=== PATIENT | male | born 1980 | race Caucasian/White ===

== ENCOUNTER 2020-05-29 08:45 | Outpatient (REF) | payer OTHER, SELFPAY ==
--- NOTE | 2020-05-29 09:17 | XR_ITS ---
EXAMINATION: XR CHEST CLINICAL INFORMATION: Cough COMPARISON: None TECHNIQUE: 2 views of the chest were obtained. FINDINGS: No significant abnormality is noted involving the heart, lungs, mediastinum, bony thorax or soft tissues. XR/XR chest 2V IMPRESSION: No acute disease
[2020-05-29 09:38] LABS: MANUAL DIFF FLAG NO
[2020-05-29 09:42] LABS: Basophils Absolute Auto 0.1 X10*3/uL (0.0-0.2); Basophils Percent Auto 0.6 % (0-2); Eosinophils Absolute Auto 0.8 X10*3/uL (0.0-0.4); Eosinophils Percent Auto 7.2 % (0-4); Hematocrit 44.3 % (42-52); Hemoglobin 14.6 g/dl (14.0-18.0); Imm Gran Abs Auto 0.03 X10*3/uL (0.00-0.03); Imm Gran Pct Auto 0.3 % (0.0-0.4); Lymphocytes Absolute Auto 3.1 X10*3/uL (1.2-4.9); Mean Corpuscular Hemoglobin 28.4 pg (27.0-33.0); Mean Corpuscular Volume 86.2 fL (80-98); Mean Platelet Volume 10.3 fL (9.4-12.4); Monocytes Absolute Auto 0.9 X10*3/uL (0.1-1.2); Neutrophils Absolute Auto 5.5 X10*3/uL (2.0-8.3); Neutrophils Percent Auto 52.9 % (45-73); Platelet Count 283 X10*3/uL (160-400); Red Blood Count 5.14 X10*6/uL (4.60-5.80); Red Cell Distribution Width 14.1 % (11.0-16.0); White Blood Count 10.4 X10*3/uL (4.8-10.8)
[2020-05-29 10:09] LABS: Glucose Urine UA NEG (NEG); Leukocyte Esterase Urine NEG (NEG); Nitrite Urine NEG (NEG); Specific Gravity - Urine 1.025 (1.005-1.025); Urine Blood NEG (NEG); Urine Ketones NEG (NEG); Urine Protein NEG (NEG-TRACE)
[2020-05-29 10:13] LABS: Appearance Urine CLEAR; Color Urine YELLOW
[2020-05-29 10:20] LABS: Alanine Aminotransferase 52 U/L (0-40); Albumin Level 4.6 g/dL (3.5-5.0); Alkaline Phosphatase 45 U/L (39-117); Anion Gap 11 (12-20); Aspartate Amino Transferase 24 U/L (5-37); Bilirubin Total 0.6 mg/dL (0.0-1.0); Blood Urea Nitrogen 15 mg/dL (9-16); Calcium 9.5 mg/dL (8.4-10.2); Carbon Dioxide 28 mmol/L (22-29); Chloride 102 mmol/L (96-108); Cholesterol 175 mg/dL; Estimated Glomerular Filt Rate > 60; Glucose Fasting 97 mg/dL (60-99); HDL Cholesterol 63 mg/dL; LDL Cholesterol Calculated 93 mg/dl; Potassium 4.6 mmol/l (3.3-5.1); Sodium 136 mmol/L (135-145); Total Protein 7.1 g/dL (6.5-8.0); Triglycerides 99 mg/dL
== END 2020-05-29 08:46 | disposition home or self-care (01) ==
LOC: HO.LAB 08:45
PROVIDERS: PCP Internal Medicine; Visit Provider Internal Medicine
DX: R05 Cough (principal); Z00.00 Encounter for general adult medical examination without abnormal findings
CPT/HCPCS: 36415; 71046; 80053; 80061; 81003; 85025

== ENCOUNTER 2022-03-11 18:40 | Outpatient (REF) | payer SELFPAY ==
--- NOTE | ~2022-03-11 | MR_ITS ---
EXAMINATION: MR BRAIN WITHOUT AND WITH CONTRAST CLINICAL INFORMATION: Cluster headaches. COMPARISON: CT scan of the head 10/13/2013. TECHNIQUE: Multiplanar MR imaging of the brain was performed without and with contrast. A total of 8 mL Gadavist was utilized for this examination. FINDINGS: Postcontrast images reveal no abnormal intracranial mass or enhancement. There is no intracranial mass effect or midline shift. Lateral and third ventricles are normal. No hydrocephalus. Midline structures including the cervicomedullary junction are normal. No acute bone marrow signal changes. There is no acute territorial infarct. No pathological magnetic susceptibility artifact. Intracranial vascular flow voids are grossly maintained. There is no mastoid or middle ear effusion. [id number] paranasal sinus thickening within ethmoid air cells and the alveolar recesses of the maxillary sinuses. Globes and orbits are symmetric. MR/MR head/brain wo/w con IMPRESSION: Unremarkable brain MRI. No abnormal intracranial mass or enhancement. No evidence of acute territorial infarct or hemorrhage.
== END 2022-03-11 18:41 | disposition home or self-care (01) ==
LOC: HO.MRI 18:40
PROVIDERS: Visit Provider Psychiatry & Neurology Neurology
DX: G44.009 Cluster headache syndrome, unspecified, not intractable (principal)
CPT/HCPCS: 70553; A9585

== ENCOUNTER 2022-06-09 13:41 | Emergency (ER) | payer OTHER, SELFPAY ==
--- NOTE | ~2022-06-09 | CT_ITS ---
EXAMINATION: CT ABDOMEN AND PELVIS WITHOUT CONTRAST CLINICAL INFORMATION: Nausea and vomiting with left upper and lower quadrant abdominal pain COMPARISON: CT abdomen pelvis 02/09/2017 TECHNIQUE: Multidetector volumetric imaging was performed from the superior aspect of the liver through the pubic symphysis. Sagittal and coronal reformatted images were obtained on the technologist's workstation. This CT examination was performed using dose optimization techniques as appropriate, variously including the following: *Automated exposure control *Adjustment of mA and/or kV according to patient size (this includes techniques or standardized protocols for targeted exams where dose is matched to indication/reason for exam; i.e. extremities or head) *Use of iterative reconstruction technique DLP: 486 mGy-cm FINDINGS: LUNG BASES: Tiny fat-containing right-sided Bochdalek hernia. Visualized lung bases are clear. LIVER, GALLBLADDER, AND BILIARY TREE: The liver is normal in size, shape, and attenuation. No focal hepatic lesion or biliary ductal dilatation is present. The gallbladder is unremarkable with no evidence of radiopaque gallstones, gallbladder wall thickening, or obvious pericholecystic inflammatory changes. PANCREAS: Unremarkable. SPLEEN: Unremarkable. ADRENAL GLANDS: Unremarkable. KIDNEYS AND URETERS: Small sub-3 mm vascular calcification versus nonobstructing stone in the left upper pole, unchanged, favor the former. No definite radiodense urinary tract calculi. No hydronephrosis. No appreciable renal lesion. No perinephric stranding or collection. BLADDER: Unremarkable. GASTROINTESTINAL TRACT: Redemonstrated submucosal fat deposition involving the majority of the colon as well as the terminal ileum, which may represent normal variant or sequela of chronic inflammation. No appreciable bowel wall thickening. No pericolonic inflammatory change. No dilated bowel loops. Appendix is not visualized. No inflammatory change at the cecal base. No free air or ascites. ABDOMINAL WALL: Small fat-containing umbilical hernia. Possible tiny fat-containing bilateral inguinal hernias. LYMPH NODES: No lymphadenopathy. VASCULAR: Normal caliber abdominal aorta. Scant vascular calcification. PELVIC VISCERA: Unremarkable. OSSEOUS STRUCTURES: No acute fracture or suspicious osseous lesion. Mild multilevel degenerative disc disease in the lower thoracic and upper lumbar spine. CT/CT abdomen pelvis wo IV con IMPRESSION: 1. No acute intra-abdominal process identified to explain the patient's pain. 2. Redemonstrated submucosal fat deposition involving the majority of the colon as well as the terminal ileum, which may represent a normal variant or sequela of chronic inflammation. No acute pericolonic inflammatory change or definite mural thickening.
[2022-06-09 13:47] VITALS: BP 159/90; PULSE 87; RESP 18; TEMP 36.4; O2SAT 99; BMI 24.4
--- NOTE | 2022-06-09 13:48 | ED_ITS ---
HPI - Abdominal Pain General Chief Complaint: Nausea/Vomiting/Diarrhea <PIYUSH Hall - Last Filed: 06/09/22 16:05> Stated Complaint: vomiting abd pain <PIYUSH Hall - Last Filed: 06/09/22 16:05> Time Seen by Provider: 06/09/22 21:06 <PIYUSH Hall - Last Filed: 06/09/22 16:05> Source: patient and family ( [place]) <Cesar Holt MD - Last Filed: 06/10/22 00:13> Mode of arrival: ambulatory <Cesar Holt MD - Last Filed: 06/10/22 00:13> Limitations: no limitations <Cesar Holt MD - Last Filed: 06/10/22 00:13> History of Present Illness HPI narrative: 41-year-old male who presents emergency department for evaluation of nausea, vomiting, diarrhea and abdominal pain. Patient states the symptoms began Wednesday (3 days prior to evaluation) at around 13:00. He states that he developed left lower quadrant abdominal pain. He describes the pain is a sharp, knife-like pain which is been constant and is greater than 10/10 at its worst. Patient states that he had multiple episodes of vomiting and 3-4 episodes of diarrhea per day. He states that the diarrhea resolved today but he continues to have nausea and vomiting and abdominal pain. The patient denies any blood in his diarrhea or emesis. He states that he has not traveled anywhere. He has not been on antibiotics recently. He denied fever, chills, rhinorrhea, sore throat or cough. He states he does have chest pain when he vomits. He states that he is feeling weak, lightheaded and dizzy and he passed out 2 times [facility] He is complaining of myalgias and arthralgias. Patient states that he drinks alcohol once a week. He states that when he drinks he drinks 6-12 Ho Lite beers. He uses gummies daily. States that he did have a history of cyclic vomiting syndrome but his symptoms were different than today's presentation. <Cesar Holt MD - Last Filed: 06/10/22 00:13> MD elicited complaint: abdominal pain <Cesar Holt MD - Last Filed: 06/10/22 00:13> Pertinent past history: other (Cyclic vomiting syndrome) <Cesar Holt MD - Last Filed: 06/10/22 00:13> Onset (ago): day(s) (3) <Cesar Holt MD - Last Filed: 06/10/22 00:13> Pain Consistency: constant <Cesar Holt MD - Last Filed: 06/10/22 00:13> Location: LLQ <Cesar Holt MD - Last Filed: 06/10/22 00:13> Severity: severe <Cesar Holt MD - Last Filed: 06/10/22 00:13> Quality: stabbing (Knife-like) <Cesar Holt MD - Last Filed: 06/10/22 00:13> Radiation: none <Cesar Holt MD - Last Filed: 06/10/22 00:13> Migration to: no migration <Cesar Holt MD - Last Filed: 06/10/22 00:13> Exacerbating factors: eating, vomiting and movement <Cesar Holt MD - Last Filed: 00:13> Relieving factors: nothing <Cesar Holt MD - Last Filed: 06/10/22 00:13> Associated symptoms: nausea, vomiting and diarrhea <Cesar Holt MD - Last Filed: 06/10/22 00:13> Related Data Home Medications: Previous Rx's Medication Instructions Recorded metoclopramide HCl 10 mg tablet 10 mg PO Q6H PRN nausea and 06/10/22 (Reglan) vomiting #14 tabs <PIYUSH Hall - Last Filed: 06/09/22 16:05> Allergies/Adverse Reactions: Allergies Allergy/AdvReac Type Severity Reaction Status Date / Time No Known Allergies Allergy Unverified 03/14/20 15:06 <PIYUSH Hall - Last Filed: 06/09/22 16:05> Review of Systems Review of Systems Yes all other systems are reviewed and are negative <MD Hans Schmitt Last Filed: 06/10/22 00:13> [facility] Past Medical History [facility] Narrative: Past medical history: Cluster headaches, cyclic vomiting syndrome. Past surgical history: Appendectomy. Social history: Patient smokes 1/2 pack of cigarettes per day times 28 years. He drinks alcohol once a week any drinks 6- 12 beers. He uses marijuana gummies daily. <Cesar Holt MD - Last Filed: 06/10/22 00:13> Social History Social History: Social History Alcohol intake: current Use of substances other than those prescribed or required for medical reasons: No Substance Use Type: Marijuana Advance Directives: No <PIYUSH Hall - Last Filed: 06/09/22 16:05> Physical Exam ED Vital Signs: Vital Signs - 24 hr 06/09/22 13:47 06/09/22 16:08 06/09/22 22:00 Temperature 97.5 F 98.8 F Pulse Rate 87 82 75 Respiratory Rate 18 18 14 Blood Pressure 159/90 H 165/72 H 177/85 H Pulse Oximetry 99 98 99 Oxygen Delivery Method Room Air Room Air Room Air BMI result Body Mass Index 24.4 <PIYUSH Hall - Last Filed: 06/09/22 16:05> Vital Signs - 24 hr 06/09/22 13:47 06/09/22 16:08 06/09/22 22:00 Temperature 97.5 F 98.8 F Pulse Rate 87 82 75 Respiratory Rate 18 18 14 Blood Pressure 159/90 H 165/72 H 177/85 H Pulse Oximetry 99 98 99 Oxygen Delivery Method Room Air Room Air Room Air BMI result Body Mass Index 24.4 <Cesar Holt MD - Last Filed: 06/10/22 00:13> Const General: cooperative and no acute distress <Cesar Holt MD - Last Filed: 06/10/22 00:13> Orientation/consciousness: oriented to person and oriented to place <Cesar Holt MD - Last Filed: 06/10/22 00:13> Limitations: no limitations <Cesar Holt MD - Last Filed: 06/10/22 00:13> HENMT Head: Yes normal to inspection, Yes normocephalic and Yes atraumatic <Cesar Holt MD - Last Filed: 06/10/22 00:13> Ears: external ears normal <Cesar Holt MD - Last Filed: 06/10/22 00:13> General nose exam: Normal external nose present <MD Hans Schmitt Last Filed: 06/10/22 00:13> Face and sinus: Yes normal facial exam <Cesar Holt MD - Last Filed: 06/10/22 00:13> Mouth: Normal oral and palatal mucosa present <Cesar Holt MD - Last Filed: 06/10/22 00:13> Throat: Yes posterior oropharynx normal <Cesar Holt MD - Last Filed: 06/10/22 00:13> Eyes General: appearance normal, both eyes and all related structures <Cesar Holt MD - Last Filed: 06/10/22 00:13> Pupils: Equal, round and reactive pupils present <MD Hans Schmitt Last Filed: 06/10/22 00:13> Neck Neck: Yes normal visual inspection, Yes no lymphadenopathy, Yes trachea midline and Yes supple <Cesar Holt MD - Last Filed: 06/10/22 00:13> Chest Chest palpation & inspection: normal inspection of the chest and normal palpation of entire chest wall <Cesar Holt MD - Last Filed: 06/10/22 00:13> Resp Effort & Inspection: normal respiratory effort and able to speak in complete sentences <Cesar Holt MD - Last Filed: 06/10/22 00:13> Auscultation: clear to auscultation bilaterally <MD Hans Schmitt Last Filed: 06/10/22 00:13> Cardio Rate: regular rate <Cesar Holt MD - Last Filed: 06/10/22 00:13> Rhythm: regular rhythm <MD Hans Schmitt Last Filed: 06/10/22 00:13> Heart sounds: S1 normal heart sound present, S2 normal heart sound present and no murmurs <MD Hans Schmitt Last Filed: 06/10/22 00:13> GI Inspection: Yes normal to inspection <Cesar Holt MD - Last Filed: 06/10/22 00:13> Palpation (GI): Soft to palpation, Tenderness to palpation present (GI) in the LLQ (Moderate) and in the LUQ (Mild) and no guarding <Cesar Holt MD - Last Filed: 06/10/22 00:13> Auscultation: normal bowel sounds <Cesar Holt MD - Last Filed: 06/10/22 00:13> General: Yes no CVA tenderness <Cesar Holt MD - Last Filed: 06/10/22 00:13> Back/Spine/Pelvis Back: no CVA tenderness <Cesar Holt MD - Last Filed: 06/10/22 00:13> Skin General skin exam: no rashes or lesions noted <Cesar Holt MD - Last Filed: 06/10/22 00:13> Neuro General: oriented to person and oriented to place <Cesar Holt MD - Last Filed: 06/10/22 00:13> Cranial nerves: Yes CN's II-XII intact bilaterally and Yes Equal, round and reactive pupils present <Cesar Holt MD - Last Filed: 06/10/22 00:13> Cognition (Neuro): normal cognition <Cesar Holt MD - Last Filed: 06/10/22 00:13> Motor exam (neuro): 5/5 motor strength present throughout <Cesar Holt MD - Last Filed: 06/10/22 00:13> Extrem General: Yes normal to inspection <Cesar Holt MD - Last Filed: 06/10/22 00:13> Psych Appearance: grossly normal <Cesar Holt MD - Last Filed: 06/10/22 00:13> Speech and movement: Normal speech and movement present <Cesar Holt MD - Last Filed: 06/10/22 00:13> Affect: normal affect <Cesar Holt MD - Last Filed: 06/10/22 00:13> Attitude: cooperative <Cesar Holt MD - Last Filed: 06/10/22 00:13> Thought process: Normal thought process present <Cesar Holt MD - Last Filed: 06/10/22 00:13> Thought content: Normal thought content present <Cesar Holt MD - Last Filed: 06/10/22 00:13> Course Course Course Narrative: 13:50pm - 41yoM c PMHx of cluster headaches, cyclical vomiting c PSHx of appendicitis who is presenting to the ED c c/o of N/V/D c abd pain LLQ. No fevers, black of bloody emesis or stools. Denies recently travel or sick contacts. Last Alcohol intake wednesday drank 12 beers. Plan: Labs, SARS/RSV/COVID swab, UA, CT scan of abd/pelvis. Provide 4mg of PO Zofran. Vitals are stable. Patient will be sent back to the waiting room for further evaluation treatment to the main ER. <PIYUSH Hall - Last Filed: 06/09/22 16:05> 13:50pm - 41yoM c PMHx of cluster headaches, cyclical vomiting c PSHx of appendicitis who is presenting to the ED c c/o of N/V/D c abd pain LLQ. No fevers, black of bloody emesis or stools. Denies recently travel or sick contacts. Last Alcohol intake wednesday drank 12 beers. Plan: Labs, SARS/RSV/COVID swab, UA, CT scan of abd/pelvis. Provide 4mg of PO Zofran. Vitals are stable. Patient will be sent back to the waiting room for further evaluation treatment to the main ER. 2127: RME reviewed. 41-year-old male who presents emergency department for evaluation of 3 days of nausea, vomiting, diarrhea and abdominal pain. Patient had 2 syncopal episodes in the emergency department a trip is this to not eating and drinking for several days. Vital signs reveal that he was hypertensive with a blood pressure of 159/90 otherwise unremarkable. Exam did reveal left upper and left lower quadrant tenderness. Patient received Zofran ODT at triage with no relief his nausea or vomiting. Laboratory evaluation: WBC elevated 13,500 glucose elevated 133. LFTs and lipase were normal. COVID-19, RSV and influenza were negative. Radiology evaluation: CT scan of the abdomen pelvis without IV contrast radiology reading below: IMPRESSION: 1. No acute intra-abdominal process identified to explain the patient's pain. 2. Redemonstrated submucosal fat deposition involving the majority of the colon as well as the terminal ileum, which may represent a normal variant or sequela of chronic inflammation. No acute pericolonic inflammatory change or definite mural thickening. Dictated By:Gavin KelloggSigned By:<Electronically signed by Gavin Kellogg in [place]>06/09/22 1705 Given this relatively negative workup, I suspect the patient has an acute viral syndrome and I did discuss this with him. Patient was ordered to get 2 L of lactated Ringer's IV, Toradol 30 mg IV, morphine 4 mg IV and healing 10 mg IV. 0008: Patient is feeling significantly better. The patient will be discharged home with prescription for Reglan. <Cesar Holt MD - Last Filed: 06/10/22 00:13> Medical Decision Making Lab Data Result Diagrams: : 06/09/22 14:06 06/09/22 14:06 <PIYUSH Hall - Last Filed: 06/09/22 16:05> Labs: Lab Results 06/09/22 06/09/22 06/09/22 Range/Units 14:06 14:06 14:06 WBC 13.5 H (4.8-10.8) X10*3/uL RBC 5.07 (4.60-5.80) X10*6/uL Hgb 14.6 (14.0-18.0) g/dl Hct 43.6 (42.0-52.0) % MCV 86.0 (80.0-98.0) fL MCH 28.8 (27.0-33.0) pg MCHC 33.5 (31.0-36.0) g/dl RDW 13.5 (11.0-16.0) % Plt Count 315 (160-400) X10*3/uL MPV 10.3 (9.4-12.4) fL Immature Gran % (Auto) 0.5 H (0.0-0.4) % Neut % (Auto) 75.9 H (45-73) % Lymph % (Auto) 16.1 L (20-40) % [place] % (Auto) 6.3 (2-11) % Eos % (Auto) 1.0 (0-4) % Baso % (Auto) 0.2 (0-2) % Lymph # (Auto) 2.2 (1.2-4.9) X10*3/uL [place] # (Auto) 0.9 (0.1-1.2) X10*3/uL Eos # (Auto) 0.1 (0.0-0.4) X10*3/uL Baso # (Auto) 0.0 (0.0-0.2) X10*3/uL Abs Immat Gran (auto) 0.07 H (0.00-0.03) X10*3/uL Absolute Neuts (auto) 10.3 H (2.0-8.3) x10*3/uL Absolute Nucleated RBC 0.000 (0.0-0.012) X10*3/uL Nucleated RBC % (auto) 0.0 (0.0-0.2) /100WBC PT 11.1 (10.0-13.1) SEC INR 1.0 (0.9-1.1) Sodium 138 (135-145) mmol/L Potassium 3.9 (3.3-5.1) mmol/L Chloride 105 (96-108) mmol/L Carbon Dioxide 24 (22-29) mmol/L Anion Gap 13 (12-20) BUN 10 (9-16) mg/dL Creatinine 0.76 (0.5-1.4) mg/dL Estim Creat Clear Calc 141.8 Estimated GFR > 60 Random Glucose 133 H (60-115) mg/dL Calcium 9.9 (8.4-10.2) mg/dL Magnesium 1.8 (1.6-2.6) mg/dL Total Bilirubin 0.6 (0.0-1.0) mg/dL AST 19 (5-37) U/L ALT 41 H (0-40) U/L Alkaline Phosphatase 53 (39-117) U/L Lactate Dehydrogenase 151 (118-273) U/L Total Protein 7.2 (6.5-8.0) g/dL Albumin 4.9 (3.5-5.0) g/dL Lipase 18 (8-78) U/L Urine Color Urine Appearance Urine pH (5.0-9.0) Ur Specific Harrod (1.005-1.025) Urine Protein (Neg-Trace) mg/dL Urine Glucose (UA) (Negative) mg/dL Urine Ketones (Negative) mg/dL Urine Blood (Negative) Urine Nitrite (Negative) Ur Leukocyte Esterase (Negative) Ethyl Alcohol < 10 mg/dL Influenza Type A (PCR) (Negative) Influenza Type B (PCR) (Negative) RSV RNA Qual (PCR) (Negative) SARS-CoV-2 RNA (RT-PCR) (Negative) 06/09/22 06/09/22 Range/Units 14:06 23:52 WBC (4.8-10.8) X10*3/uL RBC (4.60-5.80) X10*6/uL Hgb (14.0-18.0) g/dl Hct (42.0-52.0) % MCV (80.0-98.0) fL MCH (27.0-33.0) pg MCHC (31.0-36.0) g/dl RDW (11.0-16.0) % Plt Count (160-400) X10*3/uL MPV (9.4-12.4) fL Immature Gran % (Auto) (0.0-0.4) % Neut % (Auto) (45-73) % Lymph % (Auto) (20-40) % [place] % (Auto) (2-11) % Eos % (Auto) (0-4) % Baso % (Auto) (0-2) % Lymph # (Auto) (1.2-4.9) X10*3/uL [place] # (Auto) (0.1-1.2) X10*3/uL Eos # (Auto) (0.0-0.4) X10*3/uL Baso # (Auto) (0.0-0.2) X10*3/uL Abs Immat Gran (auto) (0.00-0.03) X10*3/uL Absolute Neuts (auto) (2.0-8.3) x10*3/uL Absolute Nucleated RBC (0.0-0.012) X10*3/uL Nucleated RBC % (auto) (0.0-0.2) /100WBC PT (10.0-13.1) SEC INR (0.9-1.1) Sodium (135-145) mmol/L Potassium (3.3-5.1) mmol/L Chloride (96-108) mmol/L Carbon Dioxide (22-29) mmol/L Anion Gap (12-20) BUN (9-16) mg/dL Creatinine (0.5-1.4) mg/dL Estim Creat Clear Calc Estimated GFR Random Glucose (60-115) mg/dL Calcium (8.4-10.2) mg/dL Magnesium (1.6-2.6) mg/dL Total Bilirubin (0.0-1.0) mg/dL AST (5-37) U/L ALT (0-40) U/L Alkaline Phosphatase (39-117) U/L Lactate Dehydrogenase (118-273) U/L Total Protein (6.5-8.0) g/dL Albumin (3.5-5.0) g/dL Lipase (8-78) U/L Urine Color Dark Yellow Urine Appearance Clear Urine pH 6.5 (5.0-9.0) Ur Specific [place] 1.020 (1.005-1.025) Urine Protein Trace (Neg-Trace) mg/dL Urine Glucose (UA) Negative (Negative) mg/dL Urine Ketones 40 (Negative) mg/dL Urine Blood Negative (Negative) Urine Nitrite Negative (Negative) Ur Leukocyte Esterase Negative (Negative) Ethyl Alcohol mg/dL Influenza Type A (PCR) NEGATIVE (Negative) Influenza Type B (PCR) NEGATIVE (Negative) RSV RNA Qual (PCR) NEGATIVE (Negative) SARS-CoV-2 RNA (RT-PCR) NEGATIVE (Negative) <PIYUSH Hlal - Last Filed: 06/09/22 16:05> Lab Results 06/09/22 06/09/22 06/09/22 Range/Units 14:06 14:06 14:06 WBC 13.5 H (4.8-10.8) X10*3/uL RBC 5.07 (4.60-5.80) X10*6/uL Hgb 14.6 (14.0-18.0) g/dl Hct 43.6 (42.0-52.0) % MCV 86.0 (80.0-98.0) fL MCH 28.8 (27.0-33.0) pg MCHC 33.5 (31.0-36.0) g/dl RDW 13.5 (11.0-16.0) % Plt Count 315 (160-400) X10*3/uL MPV 10.3 (9.4-12.4) fL Immature Gran % (Auto) 0.5 H (0.0-0.4) % Neut % (Auto) 75.9 H (45-73) % Lymph % (Auto) 16.1 L (20-40) % [place] % (Auto) 6.3 (2-11) % Eos % (Auto) 1.0 (0-4) % Baso % (Auto) 0.2 (0-2) % Lymph # (Auto) 2.2 (1.2-4.9) X10*3/uL [place] # (Auto) 0.9 (0.1-1.2) X10*3/uL Eos # (Auto) 0.1 (0.0-0.4) X10*3/uL Baso # (Auto) 0.0 (0.0-0.2) X10*3/uL Abs Immat Gran (auto) 0.07 H (0.00-0.03) X10*3/uL Absolute Neuts (auto) 10.3 H (2.0-8.3) x10*3/uL Absolute Nucleated RBC 0.000 (0.0-0.012) X10*3/uL Nucleated RBC % (auto) 0.0 (0.0-0.2) /100WBC PT 11.1 (10.0-13.1) SEC INR 1.0 (0.9-1.1) Sodium 138 (135-145) mmol/L Potassium 3.9 (3.3-5.1) mmol/L Chloride 105 (96-108) mmol/L Carbon Dioxide 24 (22-29) mmol/L Anion Gap 13 (12-20) BUN 10 (9-16) mg/dL Creatinine 0.76 (0.5-1.4) mg/dL Estim Creat Clear Calc 141.8 Estimated GFR > 60 Random Glucose 133 H (60-115) mg/dL Calcium 9.9 (8.4-10.2) mg/dL Magnesium 1.8 (1.6-2.6) mg/dL Total Bilirubin 0.6 (0.0-1.0) mg/dL AST 19 (5-37) U/L ALT 41 H (0-40) U/L Alkaline Phosphatase 53 (39-117) U/L Lactate Dehydrogenase 151 (118-273) U/L Total Protein 7.2 (6.5-8.0) g/dL Albumin 4.9 (3.5-5.0) g/dL Lipase 18 (8-78) U/L Urine Color Urine Appearance Urine pH (5.0-9.0) Ur Specific [place] (1.005-1.025) Urine Protein (Neg-Trace) mg/dL Urine Glucose (UA) (Negative) mg/dL Urine Ketones (Negative) mg/dL Urine Blood (Negative) Urine Nitrite (Negative) Ur Leukocyte Esterase (Negative) Ethyl Alcohol < 10 mg/dL Influenza Type A (PCR) (Negative) Influenza Type B (PCR) (Negative) RSV RNA Qual (PCR) (Negative) SARS-CoV-2 RNA (RT-PCR) (Negative) 06/09/22 06/09/22 Range/Units 14:06 23:52 WBC (4.8-10.8) X10*3/uL RBC (4.60-5.80) X10*6/uL Hgb (14.0-18.0) g/dl Hct (42.0-52.0) % MCV (80.0-98.0) fL MCH (27.0-33.0) pg MCHC (31.0-36.0) g/dl RDW (11.0-16.0) % Plt Count (160-400) X10*3/uL MPV (9.4-12.4) fL Immature Gran % (Auto) (0.0-0.4) % Neut % (Auto) (45-73) % Lymph % (Auto) (20-40) % [place] % (Auto) (2-11) % Eos % (Auto) (0-4) % Baso % (Auto) (0-2) % Lymph # (Auto) (1.2-4.9) X10*3/uL [place] # (Auto) (0.1-1.2) X10*3/uL Eos # (Auto) (0.0-0.4) X10*3/uL Baso # (Auto) (0.0-0.2) X10*3/uL Abs Immat Gran (auto) (0.00-0.03) X10*3/uL Absolute Neuts (auto) (2.0-8.3) x10*3/uL Absolute Nucleated RBC (0.0-0.012) X10*3/uL Nucleated RBC % (auto) (0.0-0.2) /100WBC PT (10.0-13.1) SEC INR (0.9-1.1) Sodium (135-145) mmol/L Potassium (3.3-5.1) mmol/L Chloride (96-108) mmol/L Carbon Dioxide (22-29) mmol/L Anion Gap (12-20) BUN (9-16) mg/dL Creatinine (0.5-1.4) mg/dL Estim Creat Clear Calc Estimated GFR Random Glucose (60-115) mg/dL Calcium (8.4-10.2) mg/dL Magnesium (1.6-2.6) mg/dL Total Bilirubin (0.0-1.0) mg/dL AST (5-37) U/L ALT (0-40) U/L Alkaline Phosphatase (39-117) U/L Lactate Dehydrogenase (118-273) U/L Total Protein (6.5-8.0) g/dL Albumin (3.5-5.0) g/dL Lipase (8-78) U/L Urine Color Dark Yellow Urine Appearance Clear Urine pH 6.5 (5.0-9.0) Ur Specific [place] 1.020 (1.005-1.025) Urine Protein Trace (Neg-Trace) mg/dL Urine Glucose (UA) Negative (Negative) mg/dL Urine Ketones 40 (Negative) mg/dL Urine Blood Negative (Negative) Urine Nitrite Negative (Negative) Ur Leukocyte Esterase Negative (Negative) Ethyl Alcohol mg/dL Influenza Type A (PCR) NEGATIVE (Negative) Influenza Type B (PCR) NEGATIVE (Negative) RSV RNA Qual (PCR) NEGATIVE (Negative) SARS-CoV-2 RNA (RT-PCR) NEGATIVE (Negative) <Cesar Holt MD - Last Filed: 06/10/22 00:13> Medications Administered Discontinued Medications Generic Name Dose Route Start Last Admin Trade Name Freq PRN Reason Stop Dose Admin Lactated Ringer's 1,000 mls @ 999 mls/hr 06/09/22 21:30 06/09/22 21:50 Lr IV 06/09/22 22:30 999 mls/hr .Q1H1M ENRIQUE Administration Lactated Ringer's 1,000 mls @ 999 mls/hr 06/09/22 21:30 06/09/22 21:50 Lr IV 06/09/22 22:30 999 mls/hr .Q1H1M ENRIQUE Administration Ketorolac Tromethamine 30 mg 06/09/22 21:21 06/09/22 21:49 Ketorolac Tromethamine 15 Mg/Ml Vial IVPUSH 06/09/22 21:22 30 mg ONCE STA Administration Metoclopramide HCl 10 mg 06/09/22 21:21 06/09/22 21:49 Metoclopramide Hcl 10 Mg/2 Ml Vial IVPUSH 06/09/22 21:22 10 mg ONCE STA Administration Morphine Sulfate 4 mg 06/09/22 21:21 06/09/22 21:49 Morphine Sulfate 4 Mg/Ml Cartridge IVPUSH 06/09/22 21:22 4 mg ONCE STA Administration Protocol Ondansetron HCl 4 mg 06/09/22 13:50 06/09/22 13:55 Ondansetron Odt 4 Mg Tab.Rapdis TRANSLINGU 06/09/22 13:51 4 mg ONCE ONE Administration <PIYUSH Hall - Last Filed: 06/09/22 16:05> Medications Administered Discontinued Medications Generic Name Dose Route Start Last Admin Trade Name Juan PRN Reason Stop Dose Admin Lactated Ringer's 1,000 mls @ 999 mls/hr 06/09/22 21:30 06/09/22 21:50 Lr IV 06/09/22 22:30 999 mls/hr .Q1H1M ENRIQUE Administration Lactated Ringer's 1,000 mls @ 999 mls/hr 06/09/22 21:30 06/09/22 21:50 Lr IV 06/09/22 22:30 999 mls/hr .Q1H1M ENRIQUE Administration Ketorolac Tromethamine 30 mg 06/09/22 21:21 06/09/22 21:49 Ketorolac Tromethamine 15 Mg/Ml Vial IVPUSH 06/09/22 21:22 30 mg ONCE STA Administration Metoclopramide HCl 10 mg 06/09/22 21:21 06/09/22 21:49 Metoclopramide Hcl 10 Mg/2 Ml Vial IVPUSH 06/09/22 21:22 10 mg ONCE STA Administration Morphine Sulfate 4 mg 06/09/22 21:21 06/09/22 21:49 Morphine Sulfate 4 Mg/Ml Cartridge IVPUSH 06/09/22 21:22 4 mg ONCE STA Administration Protocol Ondansetron HCl 4 mg 06/09/22 13:50 06/09/22 13:55 Ondansetron Odt 4 Mg Tab.Rapdis TRANSLINGU 06/09/22 13:51 4 mg ONCE ONE Administration <Cesar Holt MD - Last Filed: 06/10/22 00:13> Discharge Plan Discharge Clinical Impression: Viral syndrome, Acute dehydration Diarrhea Qualifiers: Diarrhea type: unspecified type Qualified Code(s): R19.7 - Diarrhea, unspecified Vomiting Qualifiers: Vomiting type: bilious vomiting Nausea presence: with nausea Qualified Code(s): R11.14 - Bilious vomiting <PIYUSH Hall - Last Filed: 06/09/22 16:05> Patient Disposition: Home, Self-Care <PIYUSH Hall - Last Filed: 06/09/22 16:05> Instructions: Viral Syndrome (ED) <PIYUSH Hall - Last Filed: 06/09/22 16:05> Additional Instructions: Take ibuprofen 200 mg pills, 3 pills every 6 hours as needed for pain. Take Tylenol (acetaminophen) 500 mg pills, 2 pills every 4 to 6 hours as needed for pain. Reglan (metoclopramide) in 10 mg, 1 pill Benadryl 25 mg, 2 pills After you take these medications, lie down in a dark quiet room and try to fall asleep. These medications will make you sleepy, do not drive or work after taking these medications. For diarrhea I want you to take Imodium 2 mg pills. Take 2 pills after the 1st loose, diarrheal stool then 1 pill after each loose, diarrheal stool up to 8 pills per day. This usually stops diarrhea within 24 hours. Take ibuprofen 200 mg pills, 3 pills every 6 hours as needed for pain. Take Tylenol (acetaminophen) 500 mg pills, 2 pills every 6 hours as needed for pain. Stay on a bridgett diet for the next 24 hours (bananas, rice, applesauce, tea and toast). Follow-up with your doctor in 2 days. Please return to the emergency department if your symptoms get worse or if you develop any symptoms that are concerning to you. <PIYUSH Hall - Last Filed: 06/09/22 16:05> Prescriptions: New metoclopramide HCl [Reglan] 10 mg tablet 10 mg PO Q6H PRN (Reason: nausea and vomiting) Qty: 14 0RF <PIYUSH Hall - Last Filed: 06/09/22 16:05>
[2022-06-09] MEDS: Ondansetron ODT 4 MG TAB.RAPDIS TRANSLINGU (13:55)
[2022-06-09 14:11] LABS: MANUAL DIFF FLAG NO
[2022-06-09 14:24] LABS: Basophils Percent Auto 0.2 % (0-2); Eosinophils Absolute Auto 0.1 X10*3/uL (0.0-0.4); Hematocrit 43.6 % (42.0-52.0); Hemoglobin 14.6 g/dl (14.0-18.0); Imm Gran Abs Auto 0.07 X10*3/uL (0.00-0.03); Imm Gran Pct Auto 0.5 % (0.0-0.4); Lymphocytes Absolute Auto 2.2 X10*3/uL (1.2-4.9); Lymphocytes Percent Auto 16.1 % (20-40); Mean Corpuscular HGB Conc 33.5 g/dl (31.0-36.0); Mean Corpuscular Hemoglobin 28.8 pg (27.0-33.0); Mean Platelet Volume 10.3 fL (9.4-12.4); Monocytes Absolute Auto 0.9 X10*3/uL (0.1-1.2); Monocytes Percent Auto 6.3 % (2-11); Neutrophils Absolute Auto 10.3 x10*3/uL (2.0-8.3); Neutrophils Percent Auto 75.9 % (45-73); Platelet Count 315 X10*3/uL (160-400); Red Blood Count 5.07 X10*6/uL (4.60-5.80); Red Cell Distribution Width 13.5 % (11.0-16.0); White Blood Count 13.5 X10*3/uL (4.8-10.8)
[2022-06-09 14:33] LABS: Alanine Aminotransferase 41 U/L (0-40); Albumin Level 4.9 g/dL (3.5-5.0); Alkaline Phosphatase 53 U/L (39-117); Anion Gap 13 (12-20); Aspartate Amino Transferase 19 U/L (5-37); Bilirubin Total 0.6 mg/dL (0.0-1.0); Blood Urea Nitrogen 10 mg/dL (9-16); Calcium 9.9 mg/dL (8.4-10.2); Carbon Dioxide 24 mmol/L (22-29); Chloride 105 mmol/L (96-108); Creatinine Clr Calc Pharmacy 141.8; Estimated Glomerular Filt Rate > 60; Ethanol < 10 mg/dL; Glucose Random 133 mg/dL (60-115); Lactate Dehydrogenase 151 U/L (118-273); Lipase 18 U/L (8-78); Magnesium 1.8 mg/dL (1.6-2.6); Potassium 3.9 mmol/L (3.3-5.1); Sodium 138 mmol/L (135-145); Total Protein 7.2 g/dL (6.5-8.0)
[2022-06-09 14:36] LABS: Prothrombin Time 11.1 SEC (10.0-13.1)
[2022-06-09 15:14] LABS: Influenza A PCR NEGATIVE (Negative); Influenza B PCR NEGATIVE (Negative); Resp Syncy Virus RNA Qual PCR NEGATIVE (Negative); SARS COV2 PCR INHOUSE NEGATIVE (Negative)
[2022-06-09 16:08] VITALS: BP 165/72; PULSE 82; RESP 18; O2SAT 98
[2022-06-09] MEDS: Ketorolac Tromethamine 15 MG/ML VIAL 30 MG IVPUSH (21:49)
[2022-06-09] MEDS: Morphine Sulfate 4 MG/ML CARTRIDGE IVPUSH (21:49)
[2022-06-09] MEDS: Metoclopramide HCl 10 MG/2 ML VIAL IVPUSH (21:49)
[2022-06-09] MEDS: Lactated Ringers 1,000 ML 999 ML IV ×2 (21:50)
[2022-06-09 22:00] VITALS: BP 177/85; PULSE 75; RESP 14; TEMP 37.1; O2SAT 99
[2022-06-09 23:58] LABS: Appearance Urine Clear; Color Urine Dark Yellow; Glucose Urine UA Negative (Negative); Leukocyte Esterase Urine Negative (Negative); Nitrite Urine Negative (Negative); PH 6.5 (5.0-9.0); Urine Blood Negative (Negative); Urine Ketones 40 mg/dL (Negative); Urine Protein Trace mg/dL (Neg-Trace)
--- NOTE | 2022-06-10 00:58 | PC.NURSE ---
Discharge instructions reviewed with pt. Pt verbalizes understanding.
== END 2022-06-10 01:08 | disposition home or self-care (01) ==
PROVIDERS: Physician Assistant Medical; Emergency Provider Emergency Medicine Emergency Medical Services; PCP Internal Medicine
DX: R11.14 Bilious vomiting (principal); R11.2 Nausea with vomiting, unspecified; R10.9 Unspecified abdominal pain; E86.0 Dehydration; Z20.822 Contact with and (suspected) exposure to COVID-19; Z79.899 Other long term (current) drug therapy
CPT/HCPCS: 0241U; 74176; 80053; 81003; 82077; 83615; 83690; 83735; 85025; 85610; 96374; 96375; 99284; 99285; J1885; J2270; J2765

== ENCOUNTER 2022-06-10 15:38 | Emergency (ER) | payer OTHER, SELFPAY ==
--- NOTE | 2022-06-10 16:26 | ED.ABDPAIN ---
HPI - Abdominal Pain General Chief Complaint: Nausea/Vomiting/Diarrhea Stated Complaint: Abdominal Pain/ Vomiting was seen yesterday Time Seen by Provider: 06/10/22 20:23 Related Data Previous Rx's Medication Instructions Recorded haloperidol 2 mg tablet 2 mg PO TID #10 tabs 06/10/22 metoclopramide HCl 10 mg tablet 10 mg PO Q6H PRN nausea and 06/10/22 (Reglan) vomiting #14 tabs Allergies Allergy/AdvReac Type Severity Reaction Status Date / Time No Known Allergies Allergy Unverified 03/14/20 15:06 [facility] Social History Social History Alcohol intake: current Substance Use Type: Marijuana Advance Directives: No Advance Directives Information Provided: No Physical Exam ED Vital Signs: BMI result Body Mass Index 24.4 Course Course Course Narrative: This is a rapid medical exam. Deferred additional HPI, ROS and PE to primary provider. 41yo male healthy here with complaints of generalized abdominal pain, vomiting. No diarrhea, urinary symptoms, fevers, chills. Patient seen here yesterday. Diagnosed with viral syndrome. Recommended to return for any worsening symptoms. Patient reports continued pain and vomiting. VSS. Will check labs, UA, covid screen. Medical Decision Making Lab Data Result Diagrams: 06/10/22 17:08 06/10/22 17:08 Labs: Lab Results 06/10/22 06/10/22 06/10/22 Range/Units 17:08 17:08 17:08 WBC 14.8 H (4.8-10.8) X10*3/uL RBC 5.06 (4.60-5.80) X10*6/uL Hgb 14.4 (14.0-18.0) g/dl Hct 42.1 (42.0-52.0) % MCV 83.2 (80.0-98.0) fL MCH 28.5 (27.0-33.0) pg MCHC 34.2 (31.0-36.0) g/dl RDW 13.6 (11.0-16.0) % Plt Count 312 (160-400) X10*3/uL MPV 9.9 (9.4-12.4) fL Immature Gran % (Auto) 0.3 (0.0-0.4) % Neut % (Auto) 72.9 (45-73) % Lymph % (Auto) 16.3 L (20-40) % [place] % (Auto) 10.2 (2-11) % Eos % (Auto) 0.1 (0-4) % Baso % (Auto) 0.2 (0-2) % Lymph # (Auto) 2.4 (1.2-4.9) X10*3/uL [place] # (Auto) 1.5 H (0.1-1.2) X10*3/uL Eos # (Auto) 0.0 (0.0-0.4) X10*3/uL Baso # (Auto) 0.0 (0.0-0.2) X10*3/uL Abs Immat Gran (auto) 0.05 H (0.00-0.03) X10*3/uL Absolute Neuts (auto) 10.8 H (2.0-8.3) x10*3/uL Absolute Nucleated RBC 0.000 (0.0-0.012) X10*3/uL Nucleated RBC % (auto) 0.0 (0.0-0.2) /100WBC Sodium 142 (135-145) mmol/L Potassium 3.8 (3.3-5.1) mmol/L Chloride 104 (96-108) mmol/L Carbon Dioxide 26 (22-29) mmol/L Anion Gap 16 (12-20) BUN 13 (9-16) mg/dL Creatinine 0.76 (0.5-1.4) mg/dL Estim Creat Clear Calc 141.8 Estimated GFR > 60 Random Glucose 122 H (60-115) mg/dL Calcium 9.9 (8.4-10.2) mg/dL Total Bilirubin 0.7 (0.0-1.0) mg/dL Direct Bilirubin 0.2 (0.0-0.5) mg/dL AST 20 (5-37) U/L ALT 37 (0-40) U/L Alkaline Phosphatase 48 (39-117) U/L Total Protein 7.1 (6.5-8.0) g/dL Albumin 4.9 (3.5-5.0) g/dL Urine Color Urine Appearance Urine pH (5.0-9.0) Ur Specific [place] (1.005-1.025) Urine Protein (Neg-Trace) mg/dL Urine Glucose (UA) (Negative) mg/dL Urine Ketones (Negative) mg/dL Urine Blood (Negative) Urine Nitrite (Negative) Ur Leukocyte Esterase (Negative) Urine RBC (0-2) /HPF Urine WBC (0-5) /HPF Ur Squamous Epith Cells (0-2) /HPF Urine Bacteria (None Seen) Hyaline Casts (0-2) /LPF COVID-19 (SOFIE) Negative (Negative) COVID-19 Clin Com See Note 06/10/22 Range/Units 20:25 WBC (4.8-10.8) X10*3/uL RBC (4.60-5.80) X10*6/uL Hgb (14.0-18.0) g/dl Hct (42.0-52.0) % MCV (80.0-98.0) fL MCH (27.0-33.0) pg MCHC (31.0-36.0) g/dl RDW (11.0-16.0) % Plt Count (160-400) X10*3/uL MPV (9.4-12.4) fL Immature Gran % (Auto) (0.0-0.4) % Neut % (Auto) (45-73) % Lymph % (Auto) (20-40) % [place] % (Auto) (2-11) % Eos % (Auto) (0-4) % Baso % (Auto) (0-2) % Lymph # (Auto) (1.2-4.9) X10*3/uL [place] # (Auto) (0.1-1.2) X10*3/uL Eos # (Auto) (0.0-0.4) X10*3/uL Baso # (Auto) (0.0-0.2) X10*3/uL Abs Immat Gran (auto) (0.00-0.03) X10*3/uL Absolute Neuts (auto) (2.0-8.3) x10*3/uL Absolute Nucleated RBC (0.0-0.012) X10*3/uL Nucleated RBC % (auto) (0.0-0.2) /100WBC Sodium (135-145) mmol/L Potassium (3.3-5.1) mmol/L Chloride (96-108) mmol/L Carbon Dioxide (22-29) mmol/L Anion Gap (12-20) BUN (9-16) mg/dL Creatinine (0.5-1.4) mg/dL Estim Creat Clear Calc Estimated GFR Random Glucose (60-115) mg/dL Calcium (8.4-10.2) mg/dL Total Bilirubin (0.0-1.0) mg/dL Direct Bilirubin (0.0-0.5) mg/dL AST (5-37) U/L ALT (0-40) U/L Alkaline Phosphatase (39-117) U/L Total Protein (6.5-8.0) g/dL Albumin (3.5-5.0) g/dL Urine Color Dark Yellow Urine Appearance Turbid Urine pH 6.5 (5.0-9.0) Ur Specific [place] 1.025 (1.005-1.025) Urine Protein 30 (1+) H (Neg-Trace) mg/dL Urine Glucose (UA) Negative (Negative) mg/dL Urine Ketones 15 (Negative) mg/dL Urine Blood Negative (Negative) Urine Nitrite Negative (Negative) Ur Leukocyte Esterase Trace H (Negative) Urine RBC 3-5 H (0-2) /HPF Urine WBC 0-5 (0-5) /HPF Ur Squamous Epith Cells 0-2 (0-2) /HPF Urine Bacteria None Seen (None Seen) Hyaline Casts 0-2 (0-2) /LPF COVID-19 (SOFIE) (Negative) COVID-19 Clin Com Medications Administered Discontinued Medications Generic Name Dose Route Start Last Admin Trade Name Sumanq PRN Reason Stop Dose Admin Haloperidol Lactate 2 mg 06/10/22 20:36 06/10/22 20:53 Haloperidol Lactate 5 Mg/Ml Vial IVPUSH 06/10/22 20:37 2 mg ONCE ONE Administration Sodium Chloride 1,000 mls @ 999 mls/hr 06/10/22 20:45 06/10/22 22:28 Ns IV 06/10/22 21:45 Infused .Q1H1M ENRIQUE Infusion Discharge Plan Discharge Clinical Impression: Gastroenteritis Patient Disposition: Home, Self-Care Instructions: Gastroenteritis (ED) Additional Instructions: Haloperidol is for nausea. It can make you very drowsy. Do not drive while your taking the medicine. Be sure to drink plenty of liquids over the next few days Prescriptions: New haloperidol 2 mg tablet 2 mg PO TID Qty: 10 0RF No Action metoclopramide HCl [Reglan] 10 mg tablet 10 mg PO Q6H PRN (Reason: nausea and vomiting) Qty: 14 0RF Stand Alone Forms: Work/School Release Interventions: ED Discharge Assessment Last Done: 06/10/22 23:31 Discharge Date/Time: 06/10/22 23:32
[2022-06-10 16:27] VITALS: BP 171/87; PULSE 73; RESP 20; TEMP 36.7; O2SAT 97; BMI 24.4
[2022-06-10 17:16] LABS: Basophils Percent Auto 0.2 % (0-2); Eosinophils Percent Auto 0.1 % (0-4); Hematocrit 42.1 % (42.0-52.0); Hemoglobin 14.4 g/dl (14.0-18.0); Imm Gran Abs Auto 0.05 X10*3/uL (0.00-0.03); Imm Gran Pct Auto 0.3 % (0.0-0.4); Lymphocytes Absolute Auto 2.4 X10*3/uL (1.2-4.9); Lymphocytes Percent Auto 16.3 % (20-40); Mean Corpuscular HGB Conc 34.2 g/dl (31.0-36.0); Mean Corpuscular Hemoglobin 28.5 pg (27.0-33.0); Mean Corpuscular Volume 83.2 fL (80.0-98.0); Mean Platelet Volume 9.9 fL (9.4-12.4); Monocytes Absolute Auto 1.5 X10*3/uL (0.1-1.2); Neutrophils Absolute Auto 10.8 x10*3/uL (2.0-8.3); Neutrophils Percent Auto 72.9 % (45-73); Platelet Count 312 X10*3/uL (160-400); Red Blood Count 5.06 X10*6/uL (4.60-5.80); Red Cell Distribution Width 13.6 % (11.0-16.0); SCAN SMEAR FLAG 1; White Blood Count 14.8 X10*3/uL (4.8-10.8)
[2022-06-10 17:41] LABS: COVID-19 Test Negative (Negative); IDNOW Serial# 9DB6401D
[2022-06-10 17:44] LABS: MANUAL DIFF FLAG NO; Monocytes Percent Auto 10.2 % (2-11)
[2022-06-10 17:58] LABS: Alanine Aminotransferase 37 U/L (0-40); Albumin Level 4.9 g/dL (3.5-5.0); Alkaline Phosphatase 48 U/L (39-117); Anion Gap 16 (12-20); Aspartate Amino Transferase 20 U/L (5-37); Bilirubin Direct 0.2 mg/dL (0.0-0.5); Bilirubin Total 0.7 mg/dL (0.0-1.0); Blood Urea Nitrogen 13 mg/dL (9-16); Calcium 9.9 mg/dL (8.4-10.2); Carbon Dioxide 26 mmol/L (22-29); Chloride 104 mmol/L (96-108); Creatinine Clr Calc Pharmacy 141.8; Estimated Glomerular Filt Rate > 60; Glucose Random 122 mg/dL (60-115); Potassium 3.8 mmol/L (3.3-5.1); Sodium 142 mmol/L (135-145); Total Protein 7.1 g/dL (6.5-8.0)
[2022-06-10 20:18] VITALS: BP 167/75; PULSE 73; TEMP 36.7; O2SAT 98
[2022-06-10 20:31] LABS: Appearance Urine Turbid; Color Urine Dark Yellow; Glucose Urine UA Negative (Negative); Leukocyte Esterase Urine Trace (Negative); Nitrite Urine Negative (Negative); PH 6.5 (5.0-9.0); Specific Gravity - Urine 1.025 (1.005-1.025); UMIC TRIGGER UACC YES; Urine Blood Negative (Negative); Urine Ketones 15 mg/dL (Negative); Urine Protein 30 (1+) mg/dL (Neg-Trace)
--- NOTE | 2022-06-10 20:37 | ED_ITS ---
HPI - Nausea/Vomiting/Diarrhea General Chief complaint: Nausea/Vomiting/Diarrhea Stated complaint: Abdominal Pain/ Vomiting was seen yesterday Time Seen by Provider: 06/10/22 20:23 Source: patient, family and old records reviewed Limitations: no limitations History of Present Illness HPI Narrative: Patient presents with 4 days nausea and vomiting. He had 2 days of severe watery diarrhea when symptoms started but over the last 2 days is just had nausea vomiting. No fevers or chills. Some left lower quadrant abdominal pain. He has been unable to keep down p.o. liquids or solids since this started. He was seen here in the emergency department yesterday and workup was reassuring including a CT scan which showed no intra-abdominal pathology. He was treated symptomatically and temporarily felt better. He was sent home with metoclopramide p.o., but took 1 this morning and felt very lightheaded and flushed after taking it. It did not seem to help his nausea and he is not taking it again as he is concerned about side effect. He states he was diagnosed at 1 point was cyclical vomiting but only had 2 separate episodes of vomiting and has not had any GI issues over the past several years. He uses cannabinoid gummies daily without recent change. He has not had any since this illness began. No precipitating factors that he is aware of. Related Data Previous Rx's Medication Instructions Recorded haloperidol 2 mg tablet 2 mg PO TID #10 tabs 06/10/22 metoclopramide HCl 10 mg tablet 10 mg PO Q6H PRN nausea and 06/10/22 (Reglan) vomiting #14 tabs Allergies Allergy/AdvReac Type Severity Reaction Status Date / Time No Known Allergies Allergy Unverified 03/14/20 15:06 Review of Systems Constitutional: Comments: Positive malaise. Denies fevers or chills. ENT: Comments: Dry mouth Cardiovascular: Comments: No chest pain Respiratory: Comments: No cough or dyspnea Gastrointestinal: Comments: Left lower abdominal pain with ongoing vomiting. Integumentary/Breasts: Comments: No rash Neurologic: Comments: No focal weakness Psychiatric: Comments: No recent stressors PMFSH Social History Social History Alcohol intake: current Substance Use Type: Marijuana Advance Directives: No Advance Directives Information Provided: No Physical Exam Vital Signs: Vital Signs: Last Vital Signs Temp 98.0 F 06/10/22 20:18 Pulse 73 06/10/22 20:18 Resp 20 06/10/22 16:27 BP 167/75 H 06/10/22 20:18 Pulse Ox 98 06/10/22 20:18 O2 Del Method 06/10/22 20:18 BMI result Body Mass Index 24.4 Const: Other: Awake and alert. Resp: Other: Clear and equal bilaterally without wheezes rales or rhonchi Cardio: Other: Regular rate and rhythm without murmurs rubs or gallops GI: Other: Soft and nondistended. Normal bowel sounds. Left lower quadrant abdominal tenderness without guarding or rebound. No masses noted. Skin: Other: Warm pink and dry without rash Neuro: Other: Alert and oriented. No focal neuro deficits Course Course Course Narrative: IV fluids IV Haldol Lab work today shows white count of 14.5 which is similar to yesterday's value of 13. No shift to the left. Electrolytes are normal. BUN today is 13 compared yesterday of 10. Creatinine is unchanged at 0.76. Will treat symptomatically and reassess 23:14. Patient is feeling much better after treatment. He has been able to drink liquids without difficulty. He states he feels ready to go home. Will discharge him home with a prescription for how apparent all for nausea Medications Administered Discontinued Medications Generic Name Dose Route Start Last Admin Trade Name Freq PRN Reason Stop Dose Admin Haloperidol Lactate 2 mg 06/10/22 20:36 06/10/22 20:53 Haloperidol Lactate 5 Mg/Ml Vial IVPUSH 06/10/22 20:37 2 mg ONCE ONE Administration Sodium Chloride 1,000 mls @ 999 mls/hr 06/10/22 20:45 06/10/22 22:28 Ns IV 06/10/22 21:45 Infused .Q1H1M ENRIQUE Infusion Medical Decision Making Medical Decision Making [facility] Narrative: Patient with refractory nausea and vomiting after a gastroenteritis type illness. It is possible that it has been exacerbated by his daily, may use but he has not had any in the last 4 days. And this would not be consistent with his watery diarrhea. Workup from yesterday's very reassuring especially the CT scan. Given lack of diarrhea at this time, it does not seem likely to be a bacterial enteritis. He does appear clinically dehydrated although his lab work today is normal with normal electrolytes. BUN is mildly elevated compared yesterday however. Will treat with IV fluids and today switched IV Haldol for potential better anti emetic FX. Differential Diagnosis Differential Diagnoses: The differential diagnosis associated with the presentation includes Bacterial gastroenteritis Dehydration Electrolyte imbalance Viral gastroenteritis Cannabinoid hyperemesis syndrome Doubt cyclical vomiting syndrome Lab Data Result Diagrams: 06/10/22 17:08 06/10/22 17:08 Labs: Lab Results 06/10/22 06/10/22 06/10/22 Range/Units 17:08 17:08 17:08 WBC 14.8 H (4.8-10.8) X10*3/uL RBC 5.06 (4.60-5.80) X10*6/uL Hgb 14.4 (14.0-18.0) g/dl Hct 42.1 (42.0-52.0) % MCV 83.2 (80.0-98.0) fL MCH 28.5 (27.0-33.0) pg MCHC 34.2 (31.0-36.0) g/dl RDW 13.6 (11.0-16.0) % Plt Count 312 (160-400) X10*3/uL MPV 9.9 (9.4-12.4) fL Immature Gran % (Auto) 0.3 (0.0-0.4) % Neut % (Auto) 72.9 (45-73) % Lymph % (Auto) 16.3 L (20-40) % [place] % (Auto) 10.2 (2-11) % Eos % (Auto) 0.1 (0-4) % Baso % (Auto) 0.2 (0-2) % Lymph # (Auto) 2.4 (1.2-4.9) X10*3/uL [place] # (Auto) 1.5 H (0.1-1.2) X10*3/uL Eos # (Auto) 0.0 (0.0-0.4) X10*3/uL Baso # (Auto) 0.0 (0.0-0.2) X10*3/uL Abs Immat Gran (auto) 0.05 H (0.00-0.03) X10*3/uL Absolute Neuts (auto) 10.8 H (2.0-8.3) x10*3/uL Absolute Nucleated RBC 0.000 (0.0-0.012) X10*3/uL Nucleated RBC % (auto) 0.0 (0.0-0.2) /100WBC Sodium 142 (135-145) mmol/L Potassium 3.8 (3.3-5.1) mmol/L Chloride 104 (96-108) mmol/L Carbon Dioxide 26 (22-29) mmol/L Anion Gap 16 (12-20) BUN 13 (9-16) mg/dL Creatinine 0.76 (0.5-1.4) mg/dL Estim Creat Clear Calc 141.8 Estimated GFR > 60 Random Glucose 122 H (60-115) mg/dL Calcium 9.9 (8.4-10.2) mg/dL Total Bilirubin 0.7 (0.0-1.0) mg/dL Direct Bilirubin 0.2 (0.0-0.5) mg/dL AST 20 (5-37) U/L ALT 37 (0-40) U/L Alkaline Phosphatase 48 (39-117) U/L Total Protein 7.1 (6.5-8.0) g/dL Albumin 4.9 (3.5-5.0) g/dL Urine Color Urine Appearance Urine pH (5.0-9.0) Ur Specific [place] (1.005-1.025) Urine Protein (Neg-Trace) mg/dL Urine Glucose (UA) (Negative) mg/dL Urine Ketones (Negative) mg/dL Urine Blood (Negative) Urine Nitrite (Negative) Ur Leukocyte Esterase (Negative) Urine RBC (0-2) /HPF Urine WBC (0-5) /HPF Ur Squamous Epith Cells (0-2) /HPF Urine Bacteria (None Seen) Hyaline Casts (0-2) /LPF COVID-19 (SOFIE) Negative (Negative) COVID-19 Clin Com See Note 06/10/22 Range/Units 20:25 WBC (4.8-10.8) X10*3/uL RBC (4.60-5.80) X10*6/uL Hgb (14.0-18.0) g/dl Hct (42.0-52.0) % MCV (80.0-98.0) fL MCH (27.0-33.0) pg MCHC (31.0-36.0) g/dl RDW (11.0-16.0) % Plt Count (160-400) X10*3/uL MPV (9.4-12.4) fL Immature Gran % (Auto) (0.0-0.4) % Neut % (Auto) (45-73) % Lymph % (Auto) (20-40) % [place] % (Auto) (2-11) % Eos % (Auto) (0-4) % Baso % (Auto) (0-2) % Lymph # (Auto) (1.2-4.9) X10*3/uL [place] # (Auto) (0.1-1.2) X10*3/uL Eos # (Auto) (0.0-0.4) X10*3/uL Baso # (Auto) (0.0-0.2) X10*3/uL Abs Immat Gran (auto) (0.00-0.03) X10*3/uL Absolute Neuts (auto) (2.0-8.3) x10*3/uL Absolute Nucleated RBC (0.0-0.012) X10*3/uL Nucleated RBC % (auto) (0.0-0.2) /100WBC Sodium (135-145) mmol/L Potassium (3.3-5.1) mmol/L Chloride (96-108) mmol/L Carbon Dioxide (22-29) mmol/L Anion Gap (12-20) BUN (9-16) mg/dL Creatinine (0.5-1.4) mg/dL Estim Creat Clear Calc Estimated GFR Random Glucose (60-115) mg/dL Calcium (8.4-10.2) mg/dL Total Bilirubin (0.0-1.0) mg/dL Direct Bilirubin (0.0-0.5) mg/dL AST (5-37) U/L ALT (0-40) U/L Alkaline Phosphatase (39-117) U/L Total Protein (6.5-8.0) g/dL Albumin (3.5-5.0) g/dL Urine Color Dark Yellow Urine Appearance Turbid Urine pH 6.5 (5.0-9.0) Ur Specific [place] 1.025 (1.005-1.025) Urine Protein 30 (1+) H (Neg-Trace) mg/dL Urine Glucose (UA) Negative (Negative) mg/dL Urine Ketones 15 (Negative) mg/dL Urine Blood Negative (Negative) Urine Nitrite Negative (Negative) Ur Leukocyte Esterase Trace H (Negative) Urine RBC 3-5 H (0-2) /HPF Urine WBC 0-5 (0-5) /HPF Ur Squamous Epith Cells 0-2 (0-2) /HPF Urine Bacteria None Seen (None Seen) Hyaline Casts 0-2 (0-2) /LPF COVID-19 (SOFIE) (Negative) COVID-19 Clin Com Discharge Plan Discharge Clinical Impression: Gastroenteritis Patient Disposition: Home, Self-Care Instructions: Gastroenteritis (ED) Additional Instructions: Haloperidol is for nausea. It can make you very drowsy. Do not drive while your taking the medicine. Be sure to drink plenty of liquids over the next few days Prescriptions: New haloperidol 2 mg tablet 2 mg PO TID Qty: 10 0RF No Action metoclopramide HCl [Reglan] 10 mg tablet 10 mg PO Q6H PRN (Reason: nausea and vomiting) Qty: 14 0RF
[2022-06-10 20:40] LABS: Bacteria Urine None Seen (None Seen); Hyaline Casts Urine 0-2 /LPF (0-2); Squamous Epithelial Cell Urine 0-2 /HPF (0-2); WBC Urine 0-5 /HPF (0-5)
[2022-06-10] MEDS: 0.9 % Sodium Chloride 1,000 ML 999 ML IV (20:52)
[2022-06-10] MEDS: Haloperidol Lactate 5 MG/ML VIAL 2 MG IVPUSH (20:53)
== END 2022-06-10 23:32 | disposition home or self-care (01) ==
PROVIDERS: Nurse Practitioner Family; Emergency Provider Emergency Medicine; PCP Internal Medicine
DX: K52.9 Noninfective gastroenteritis and colitis, unspecified (principal); R11.2 Nausea with vomiting, unspecified; Z20.822 Contact with and (suspected) exposure to COVID-19; F12.90 Cannabis use, unspecified, uncomplicated
CPT/HCPCS: 80048; 80076; 81001; 85025; 87635; 96361; 96374; 99283; 99284

== ENCOUNTER 2022-12-11 10:13 | Emergency (ER) | payer OTHER, SELFPAY ==
--- NOTE | ~2022-12-11 | CT_ITS ---
EXAMINATION: CT ABDOMEN AND PELVIS WITH CONTRAST CLINICAL INFORMATION: Left upper quadrant pain questionable pancreatitis COMPARISON: May 1622 TECHNIQUE: Multidetector volumetric images were obtained from the superior aspect of the liver through the pubic symphysis following administration 85 mL of Omnipaque 350 intravenous contrast. Sagittal and coronal reformatted images were obtained on the technologist's workstation. Oral contrast: No This CT examination was performed using dose optimization techniques as appropriate, variously including the following: *Automated exposure control *Adjustment of mA and/or kV according to patient size (this includes techniques or standardized protocols for targeted exams where dose is matched to indication/reason for exam; i.e. extremities or head) *Use of iterative reconstruction technique DLP: 493 mGy-cm FINDINGS: LUNG BASES: The visualized lung bases are unremarkable. LIVER, GALLBLADDER, AND BILIARY TREE: The liver is normal in size, shape, and attenuation. No focal hepatic lesion or biliary ductal dilatation is present. The gallbladder is unremarkable with no evidence of radiopaque gallstones, gallbladder wall thickening, or obvious pericholecystic inflammatory changes. PANCREAS: Unremarkable. No evidence of pancreatitis. SPLEEN: Unremarkable. ADRENAL GLANDS: Unremarkable. KIDNEYS AND URETERS: There is stable 0.3 cm calcifications seen in the upper pole of left kidney without hydroureteronephrosis. BLADDER: Unremarkable. GASTROINTESTINAL TRACT: There is chronic fatty infiltration of colonic wall. There is no evidence of colitis, diverticulitis or diverticulosis. Colon is decompressed. Appendix is not identified. There are no secondary signs of appendicitis. Loops of small bowel unremarkable. ABDOMINAL WALL: There is small fat-containing umbilical hernia LYMPH NODES: Normal. VASCULAR: Unremarkable. PELVIC VISCERA: Unremarkable. OSSEOUS STRUCTURES: Unremarkable. CT/CT abdomen pelvis w IV con IMPRESSION: 1. No acute abnormalities. No evidence of pancreatitis. 2. Chronic fatty infiltration of colonic wall. 3. Left nephrolithiasis. 4. Small fat-containing umbilical hernia. Fleischner guidelines were followed.
--- NOTE | 2022-12-11 10:17 | ED_ITS ---
HPI - General Adult General Chief complaint: Abdominal Pain Stated complaint: RUQ ABD PAIN VOMITTING AND DIARRHEA Time Seen by Provider: 12/11/22 11:01 Source: patient Mode of arrival: ambulatory Limitations: no limitations History of Present Illness HPI narrative: This is a 41-year-old male without significant medical history presenting to the emergency department complaints of nausea, vomiting, diarrhea, left upper quadrant abdominal pain for the past 3 days, patient is coming from Urgent Care, he reports that he has not been able to tolerate much by mouth, each time he eats or drinks he there has an episode of vomiting or has diarrhea. Patient reports intermittent sharp severe left upper quadrant abdominal pain that started yesterday. He reports that he drinks about 2 drinks per week, and smokes marijuana. No other drug use. Patient does not have a history of pancreatitis but has a hx of cyclic vomiting. He reports he had this in the past and was discharged from emergency department with a diagnosis of stomach virus. Patient has taken Imodium with little to no relief and Reglan. Denies fevers, chills, chest pain, shortness of breath, headache, vision changes, dizziness and weakness. Related Data Previous Rx's Medication Instructions Recorded haloperidol 2 mg tablet 2 mg PO TID #10 tabs 06/10/22 metoclopramide HCl 10 mg tablet 10 mg PO Q6H PRN nausea and 06/10/22 (Reglan) vomiting #14 tabs Allergies Allergy/AdvReac Type Severity Reaction Status Date / Time No Known Allergies Allergy Unverified 03/14/20 15:06 Review of Systems Review of Systems: Constitutional : No Weight loss, No Fever, No Chills, + Fatigue, + Malaise ENT/Mouth : No sore throat, No Rhinorrhea Eyes: No Eye Pain, No Swelling, No Redness Cardiovascular : No Chest Pain, No SOB, No Dyspnea on Exertion, No Orthopnea, No Edema, No Palpitations Respiratory : No Cough, No Sputum, No Wheezing Gastrointestinal : + Nausea, + Vomiting, No Diarrhea, No Constipation, + abdominal Pain, No Hematochezia, No Melena Genitourinary : No Dysuria, No Urinary Frequency, No Hematuria, Musculoskeletal : No joint pain, No Myalgias, No Joint Swelling Skin : No Skin Lesions, No rash Neuro : No Weakness, No Numbness, No Dizziness, No Headache Psych : No Anxiety/Panic, No Depression All other systems reviewed and are negative Yes all other systems are reviewed and are negative [facility] Past Medical History Attestation statement: The following information was validated with the patient. Source: old records reviewed and nursing notes reviewed Social History Social History Alcohol intake: current Alcohol intake frequency: 0-2 drinks per day Smoked in Last 30 Days: Yes Substance Use Type: Marijuana Advance Directives: No Advance Directives Information Provided: Yes Physical Exam ED Vital Signs: Vital Signs - 24 hr 12/11/22 10:19 12/11/22 11:17 Temperature 98.1 F Pulse Rate 79 62 Respiratory Rate 16 16 Blood Pressure 180/83 H 188/85 H Pulse Oximetry 99 97 Oxygen Delivery Method Room Air Room Air BMI result Body Mass Index 24.1 vss Appearance: Alert.? Oriented X3.? No acute distress.? Head: Normocephalic, atraumatic, no step-offs or deformities Eyes: Pupils equal, round and reactive to light.? ENT: Pharynx normal.??External ears normal, TMs normal bilaterally and EAC's normal. No pain with manipulation of external ears bilaterally. No mastoid tenderness. Neck: Normal inspection.? Neck supple.? CVS: Normal heart rate and rhythm.? Pulses normal.? Respiratory: No respiratory distress.? Breath sounds normal.? Abdomen: Soft and +LUQ pain.? Skin: Skin warm and dry.? Normal skin color.? Normal skin turgor.? Extremities: No lower extremity edema.? No calf ttp. 5/5 strength to bilateral upper and lower extremities Back: No cvva tenderness Neuro: Oriented X 3.? No motor deficit.? No sensory deficit. CN 2-12 intact Course Reevaluation(s) Reevaluation #1: CBC with slight leukocytosis likely reactive from nausea and vomiting, no left shift. Chemistry with slightly elevated calcium likely secondary to poor p.o. intake/dehydration, lipase normal no signs of pancreatitis. Triglycerides also normal. Urine, CT abdomen pelvis pending. Time: 11:17 Reevaluation #2: CT of the abdomen pelvis with no acute abnormality. No evidence of panc reatitis, chronic fatty infiltration of the colonic wall. Left nephrolithiasis however this is likely pain from kidney stone. Small fat containing umbilical hernia, no signs of incarceration. This is likely viral illness versus cyclical vomiting. Patient feeling better, no nausea or vomiting since in the department. Will discharge with Toradol and Zofran. Educated patient on diagnosis and treatment plan, answered all question, patient verbalizes understanding. At this time patient will be discharged home, advised to return with new or worsening symptoms. Educated on worrisome signs and symptoms and when to return. At this time I feel comfortable discharge home. Time: 12:03 Reevaluation #3: UA pending, if urine is positive will call in prescription for patient and call patient to let him know. No need for him to wait for results here will not change my disposition. Medications Administered Discontinued Medications Generic Name Dose Route Start Last Admin Trade Name Freq PRN Reason Stop Dose Admin Sodium Chloride 1,000 mls @ 999 mls/hr 12/11/22 10:30 12/11/22 11:25 Ns IV 12/11/22 11:30 Infused .Q1H1M ENRIQUE Infusion Sodium Chloride 1,000 mls @ 999 mls/hr 12/11/22 10:45 12/11/22 11:21 Ns IV 12/11/22 11:45 999 mls/hr .Q1H1M ENRIQUE Administration Iohexol 85 ml 12/11/22 11:21 12/11/22 11:22 Iohexol 350 Mg/Ml 100 Ml Infus..Btl IV 12/11/22 11:22 85 ml ONCE ONE Administration Ketorolac Tromethamine 30 mg 12/11/22 11:15 12/11/22 11:21 Ketorolac Tromethamine 15 Mg/Ml Vial IVPUSH 12/11/22 11:16 30 mg ONCE ONE Administration Ondansetron HCl 4 mg 12/11/22 10:37 12/11/22 11:21 Ondansetron Hcl 4 Mg/2 Ml Vial IVPUSH 12/11/22 10:38 4 mg ONCE ONE Administration Medical Decision Making Medical Decision Making [facility] Narrative: 1018 41-year-old male presents with complaints on a nausea, vomiting, diarrhea and left upper quadrant abdominal pain for the past 3 days. Coming via ambulance from Urgent Care. Physical left upper quadrant tenderness. Likely viral illness versus pancreatitis versus cyclic vomiting. Unlikely cholecystitis, acute abdomen, appendicitis or diverticulitis. Low suspicion for obstruction. Plan labs, imaging, urine. Differential Diagnosis Differential Diagnoses: The differential diagnosis associated with the presentation includes Likely viral illness versus pancreatitis versus cyclic vomiting. Unlikely cholecystitis, acute abdomen, appendicitis or diverticulitis. Low suspicion for obstruction. Admission/Observation Consideration of admission/observation: Escalation of care including admission/observation considered Lab Data MDM Lab Attestation statement: I reviewed the patient's lab results. 12/11/22 10:30 12/11/22 10:30 Labs: Lab Results 12/11/22 12/11/22 12/11/22 Range/Units 10:30 10:30 10:30 WBC 12.3 H (4.8-10.8) X10*3/uL RBC 5.50 (4.60-5.80) X10*6/uL Hgb 15.7 (14.0-18.0) g/dl Hct 45.3 (42.0-52.0) % MCV 82.4 (80.0-98.0) fL MCH 28.5 (27.0-33.0) pg MCHC 34.7 (31.0-36.0) g/dl RDW 13.4 (11.0-16.0) % Plt Count 311 (160-400) X10*3/uL MPV 9.6 (9.4-12.4) fL Immature Gran % (Auto) 0.3 (0.0-0.4) % Neut % (Auto) 78.1 H (45-73) % Lymph % (Auto) 13.4 L (20-40) % Woods % (Auto) 7.8 (2-11) % Eos % (Auto) 0.2 (0-4) % Baso % (Auto) 0.2 (0-2) % Lymph # (Auto) 1.6 (1.2-4.9) X10*3/uL Woods # (Auto) 1.0 (0.1-1.2) X10*3/uL Eos # (Auto) 0.0 (0.0-0.4) X10*3/uL Baso # (Auto) 0.0 (0.0-0.2) X10*3/uL Abs Immat Gran (auto) 0.04 H (0.00-0.03) X10*3/uL Absolute Neuts (auto) 9.6 H (2.0-8.3) x10*3/uL Absolute Nucleated RBC 0.000 (0.0-0.012) X10*3/uL Nucleated RBC % (auto) 0.0 (0.0-0.2) /100WBC Sodium 138 (135-145) mmol/L Potassium 3.5 (3.3-5.1) mmol/L Chloride 101 (96-108) mmol/L Carbon Dioxide 22 (22-29) mmol/L Anion Gap 19 (12-20) BUN 15 (9-16) mg/dL Creatinine 0.77 (0.5-1.4) mg/dL Estim Creat Clear Calc 139.9 Estimated GFR > 60 Random Glucose 135 H (60-115) mg/dL Calcium 10.7 H D (8.4-10.2) mg/dL Magnesium 1.9 (1.6-2.6) mg/dL Total Bilirubin 0.7 (0.0-1.0) mg/dL AST 18 (5-37) U/L ALT 37 (0-40) U/L Alkaline Phosphatase 59 (39-117) U/L Total Protein 8.2 H (6.5-8.0) g/dL Albumin 5.1 H (3.5-5.0) g/dL Triglycerides 73 mg/dL Lipase 17 (8-78) U/L COVID-19 (SOFIE) Negative (Negative) COVID-19 Clin Com See Note Independent Interpretation I performed an independent interpretation of an: CT Scan (CT/CT abdomen pelvis w IV con IMPRESSION: 1. No acute abnormalities. No evidence of pancreatitis. 2. Chronic fatty infiltration of colonic wall. 3. Left nephrolithiasis. 4. Small fat-containing umbilical hernia. Fleischner guidelines were followed.) Radiology Impression Discussion of test interpretation with radiology: I have reviewed the radiologist's reading. Prescription Management I considered prescription management with: Pain Medication Core Measures AMI core measures followed: Yes Measure exclusions: not indicated Discharge Plan Discharge Clinical Impression: Nausea & vomiting, Diarrhea, Cyclical vomiting, Abdominal pain, LUQ Patient Disposition: Home, Self-Care Instructions: Acute Nausea and Vomiting (ED), Acute Diarrhea (ED) Additional Instructions: Take your medications as prescribed. If you were prescribed antibiotics today, it is important that you take your medication to their entirety, do not skip any doses, do not finish them early. Follow-up with your primary care provider this week. Return to the emergency department with new or worsening symptoms. Such as fevers, chills, chest pain, shortness of breath, nausea, vomiting, dizziness, headache, vision changes, lethargy In case of emergency call 911 Toradol has been sent to your pharmacy, you tolerated this well in the department. Please take this as prescribed do not take this with ibuprofen, or other NSAIDs, do not mix this with alcohol. Side effects of this medication including increased risk for bleeding and possible kidney injury. CT/CT abdomen pelvis w IV con IMPRESSION: 1.? No acute abnormalities. No evidence of pancreatitis. 2.? Chronic fatty infiltration of colonic wall. 3.? Left nephrolithiasis. 4.? Small fat-containing umbilical hernia. ? Fleischner guidelines were followed. Prescriptions: No Action metoclopramide HCl [Reglan] 10 mg tablet 10 mg PO Q6H PRN (Reason: nausea and vomiting) Qty: 14 0RF haloperidol 2 mg tablet 2 mg PO TID Qty: 10 0RF Referrals: Physician,Unknown J [Primary Care Provider] - 2 days Stand Alone Forms: Work/School Release
[2022-12-11 10:19] VITALS: BP 180/83; PULSE 79; RESP 16; TEMP 36.7; O2SAT 99; BMI 24.1
[2022-12-11] MEDS: 0.9 % Sodium Chloride 1,000 ML 999 ML IV ×2 (10:33→11:21)
[2022-12-11 10:34] LABS: MANUAL DIFF FLAG NO
[2022-12-11 10:37] LABS: Basophils Percent Auto 0.2 % (0-2); Eosinophils Percent Auto 0.2 % (0-4); Hematocrit 45.3 % (42.0-52.0); Hemoglobin 15.7 g/dl (14.0-18.0); Imm Gran Abs Auto 0.04 X10*3/uL (0.00-0.03); Imm Gran Pct Auto 0.3 % (0.0-0.4); Lymphocytes Absolute Auto 1.6 X10*3/uL (1.2-4.9); Lymphocytes Percent Auto 13.4 % (20-40); Mean Corpuscular HGB Conc 34.7 g/dl (31.0-36.0); Mean Corpuscular Hemoglobin 28.5 pg (27.0-33.0); Mean Corpuscular Volume 82.4 fL (80.0-98.0); Mean Platelet Volume 9.6 fL (9.4-12.4); Monocytes Percent Auto 7.8 % (2-11); Neutrophils Absolute Auto 9.6 x10*3/uL (2.0-8.3); Neutrophils Percent Auto 78.1 % (45-73); Platelet Count 311 X10*3/uL (160-400); Red Cell Distribution Width 13.4 % (11.0-16.0); White Blood Count 12.3 X10*3/uL (4.8-10.8)
[2022-12-11 10:58] LABS: COVID-19 Test Negative (Negative); IDNOW Serial# 08D9AD1C
[2022-12-11 11:05] LABS: Alanine Aminotransferase 37 U/L (0-40); Albumin Level 5.1 g/dL (3.5-5.0); Alkaline Phosphatase 59 U/L (39-117); Anion Gap 19 (12-20); Aspartate Amino Transferase 18 U/L (5-37); Bilirubin Total 0.7 mg/dL (0.0-1.0); Blood Urea Nitrogen 15 mg/dL (9-16); Calcium 10.7 mg/dL (8.4-10.2); Carbon Dioxide 22 mmol/L (22-29); Chloride 101 mmol/L (96-108); Creatinine Clr Calc Pharmacy 139.9; Estimated Glomerular Filt Rate > 60; Glucose Random 135 mg/dL (60-115); Lipase 17 U/L (8-78); Magnesium 1.9 mg/dL (1.6-2.6); Potassium 3.5 mmol/L (3.3-5.1); Sodium 138 mmol/L (135-145); Total Protein 8.2 g/dL (6.5-8.0); Triglycerides 73 mg/dL
[2022-12-11 11:17] VITALS: BP 188/85; PULSE 62; RESP 16; O2SAT 97
[2022-12-11] MEDS: Ketorolac Tromethamine 15 MG/ML VIAL 30 MG IVPUSH (11:21)
[2022-12-11] MEDS: ondansetron HCL 4 MG/2 ML VIAL IVPUSH (11:21)
[2022-12-11] MEDS: iohexoL 350 MG/ML 100 ML INFUS..BTL 85 ML IV (11:22)
[2022-12-11 12:37] LABS: Appearance Urine Clear; Color Urine Yellow; Glucose Urine UA Negative (Negative); Leukocyte Esterase Urine Negative (Negative); Nitrite Urine Negative (Negative); Specific Gravity - Urine >= 1.030 (1.005-1.025); UMIC TRIGGER UACC YES; Urine Blood Negative (Negative); Urine Ketones 15 mg/dL (Negative); Urine Protein 100 (2+) mg/dL (Neg-Trace)
[2022-12-11 12:39] LABS: Bacteria Urine None Seen (None Seen); Hyaline Casts Urine 0-2 /LPF (0-2); RBC Urine 0-2 /HPF (0-2); Squamous Epithelial Cell Urine 0-2 /HPF (0-2); WBC Urine 0-5 /HPF (0-5)
[2022-12-11 12:41] VITALS: BP 170/84; PULSE 69; RESP 18; O2SAT 98
[2022-12-11 23:56] LABS: Amphetamine Screen Urine Not Detected (Not Detect); Barbiturates, Urine Not Detected (Not Detect); Benzodiazepines Screen Urine Not Detected (Not Detect); Cannabinoid Screen Urine POSITIVE (Not Detect); Cocaine Screen Urine Not Detected (Not Detect); Fentanyl, urine Not Detected (Not Detect); Opiate Screen Urine Not Detected (Not Detect); Phencyclidine Screen Urine Not Detected (Not Detect)
== END 2022-12-11 12:49 | disposition home or self-care (01) ==
PROVIDERS: Physician Assistant; Emergency Provider Emergency Medicine
DX: R10.11 Right upper quadrant pain (principal); R11.2 Nausea with vomiting, unspecified; R19.7 Diarrhea, unspecified; F12.19 Cannabis abuse with unspecified cannabis-induced disorder; R10.12 Left upper quadrant pain; Z20.822 Contact with and (suspected) exposure to COVID-19; Z20.828 Contact with and (suspected) exposure to other viral communicable diseases; Z79.899 Other long term (current) drug therapy
CPT/HCPCS: 74177; 80053; 80307; 81001; 83690; 83735; 84478; 85025; 87635; 96361; 96374; 96375; 99284; 99285; J1885; J2405; Q9967

== ENCOUNTER 2023-03-23 16:15 | Outpatient (REF) | payer OTHER, SELFPAY ==
[2023-03-23 17:27] LABS: Basophils Absolute Auto 0.1 X10*3/uL (0.0-0.2); Basophils Percent Auto 0.5 % (0-2); Eosinophils Absolute Auto 0.2 X10*3/uL (0.0-0.4); Eosinophils Percent Auto 1.3 % (0-4); Hematocrit 49.2 % (42.0-52.0); Hemoglobin 16.8 g/dl (14.0-18.0); Imm Gran Abs Auto 0.06 X10*3/uL (0.00-0.03); Imm Gran Pct Auto 0.4 % (0.0-0.4); Lymphocytes Absolute Auto 4.2 X10*3/uL (1.2-4.9); Lymphocytes Percent Auto 29.7 % (20-40); MANUAL DIFF FLAG SCAN; Mean Corpuscular HGB Conc 34.1 g/dl (31.0-36.0); Mean Corpuscular Hemoglobin 28.5 pg (27.0-33.0); Mean Corpuscular Volume 83.4 fL (80.0-98.0); Mean Platelet Volume 10.8 fL (9.4-12.4); Monocytes Absolute Auto 2.6 X10*3/uL (0.1-1.2); Neutrophils Absolute Auto 7.1 x10*3/uL (2.0-8.3); Neutrophils Percent Auto 50.1 % (45-73); Platelet Count 346 X10*3/uL (160-400); Red Cell Distribution Width 12.7 % (11.0-16.0); SCAN SMEAR FLAG 1; White Blood Count 14.1 X10*3/uL (4.8-10.8)
[2023-03-23 18:20] LABS: Alanine Aminotransferase 20 U/L (0-40); Albumin Level 5.1 g/dL (3.5-5.0); Alkaline Phosphatase 56 U/L (39-117); Anion Gap 16 (12-20); Aspartate Amino Transferase 18 U/L (5-37); Bilirubin Total 1.1 mg/dL (0.0-1.0); Blood Urea Nitrogen 31 mg/dL (9-16); Calcium 10.8 mg/dL (8.4-10.2); Carbon Dioxide 29 mmol/L (22-29); Chloride 90 mmol/L (96-108); Estimated Glomerular Filt Rate > 60; Glucose Random 106 mg/dL (60-115); Lipase 26 U/L (8-78); Potassium 3.7 mmol/L (3.3-5.1); Sodium 131 mmol/L (135-145)
[2023-03-23 18:37] LABS: SLIDE REVIEW VERIFIED
== END 2023-03-23 16:16 | disposition home or self-care (01) ==
LOC: HO.LAB 16:15
PROVIDERS: PCP Internal Medicine; Visit Provider Internal Medicine
DX: R11.2 Nausea with vomiting, unspecified (principal); K21.9 Gastro-esophageal reflux disease without esophagitis; R10.9 Unspecified abdominal pain
CPT/HCPCS: 36415; 80053; 83690; 85025

== ENCOUNTER 2024-06-07 10:24 | Outpatient (REF) | payer OTHER, SELFPAY ==
[2024-06-07 11:05] LABS: MANUAL DIFF FLAG NO
[2024-06-07 11:10] LABS: Basophils Absolute Auto 0.1 X10*3/uL (0.0-0.2); Basophils Percent Auto 0.8 % (0-2); Eosinophils Absolute Auto 0.4 X10*3/uL (0.0-0.4); Eosinophils Percent Auto 3.9 % (0-4); Hemoglobin 14.7 g/dl (14.0-18.0); Imm Gran Abs Auto 0.03 X10*3/uL (0.00-0.03); Imm Gran Pct Auto 0.3 % (0.0-0.4); Lymphocytes Absolute Auto 3.5 X10*3/uL (1.2-4.9); Lymphocytes Percent Auto 32.6 % (20-40); Mean Corpuscular HGB Conc 33.4 g/dl (31.0-36.0); Mean Corpuscular Hemoglobin 29.3 pg (27.0-33.0); Mean Corpuscular Volume 87.6 fL (80.0-98.0); Mean Platelet Volume 10.1 fL (9.4-12.4); Monocytes Percent Auto 9.2 % (2-11); Neutrophils Absolute Auto 5.6 x10*3/uL (2.0-8.3); Neutrophils Percent Auto 53.2 % (45-73); Platelet Count 325 X10*3/uL (160-400); Red Blood Count 5.02 X10*6/uL (4.60-5.80); White Blood Count 10.6 X10*3/uL (4.8-10.8)
[2024-06-07 11:27] LABS: Alanine Aminotransferase 35 U/L (0-40); Albumin Level 4.2 g/dL (3.5-5.0); Alkaline Phosphatase 57 U/L (39-117); Anion Gap 10 (12-20); Aspartate Amino Transferase 19 U/L (5-37); Bilirubin Total 0.2 mg/dL (0.0-1.0); Blood Urea Nitrogen 17 mg/dL (9-16); Calcium 9.7 mg/dL (8.4-10.2); Carbon Dioxide 30 mmol/L (22-29); Chloride 106 mmol/L (96-108); Cholesterol 194 mg/dL (<200); Estimated Glomerular Filt Rate > 60; Glucose Random 110 mg/dL (60-115); Potassium 3.8 mmol/L (3.3-5.1); Sodium 142 mmol/L (135-145); Total Protein 6.7 g/dL (6.5-8.0)
[2024-06-07 11:31] LABS: Parathyroid Hormone Intact 37.2 pg/mL (8.7-77.1)
== END 2024-06-07 10:25 | disposition home or self-care (01) ==
LOC: HO.10HDL 10:24
PROVIDERS: Visit Provider Internal Medicine
DX: L72.0 Epidermal cyst (principal); Z72.0 Tobacco use; R51.9 Headache, unspecified; K62.5 Hemorrhage of anus and rectum; E78.00 Pure hypercholesterolemia, unspecified
CPT/HCPCS: 36415; 80053; 82465; 83970; 85025

== ENCOUNTER 2024-06-07 10:35 | Outpatient (AMB) | payer OTHER, SELFPAY ==
--- NOTE | 2024-06-07 10:36 | A.OFFVIS_ITS ---
Vital Signs 06/07/24 10:42 Height 6 ft Weight 176 lb BMI 23.9 Intake Visit Reasons: Cyst (R) neck Intake Note: This patient presents for cyst on the right neck. Pt c/o; reports cyst right posterior neck, reports no antibiotics. 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 He says he has had this for several months. This seems to be increasing size. This has been bothering him wants this. He denies any drainage. [facility] Medical History (Updated 06/07/24 @ 10:48 by Franklin Park MD) Epidermal cyst of neck Surgical History No pertinent past surgical history Family History Other Family history unknown Social History Alcohol intake: current Alcohol intake frequency: 0-2 drinks per day Substance Use Type: Marijuana Review of Systems Const Denies chills and Denies fever(s) Card Denies chest pain, Denies dyspnea and Denies dyspnea on exertion Resp Denies cough, Denies dyspnea and Denies dyspnea on exertion GI Denies hematochezia and Denies change in bowel habits Denies hematuria and Denies difficulty urinating Musc Denies back pain and Denies limited range of motion Neuro Denies focal weakness and Denies convulsions Psych Denies depression and Denies mood swings Physical Exam Vital Signs: BMI result Body Mass Index 23.9 Const General: comfortable and no acute distress Orientation/consciousness: patient oriented x3 Neck Other: On the posterior neck the right side is cystic mass, 1.5 cm in diameter, well- defined Neck: Yes no lymphadenopathy Resp Auscultation: clear to auscultation bilaterally Cardio Rhythm: regular rhythm GI Palpation (GI): Soft to palpation, nontender and no guarding Neuro General: patient oriented x3 Assessment & Plan Assessment & Plan (1) Epidermal cyst of neck: Code(s): L72.0 - Epidermal cyst Category: Medical Plan: He has what appears to be an epidermal inclusion cyst on the neck as described above. He wants this removed. I explained the technique of excision under local anesthesia. I reviewed the risks including but not limited to bleeding infections, as well as the benefits and alternatives. He understands and wants to proceed This could be done on his next visit in the office. Coding Level of Care Code New Pt Level 3 (83656) Diagnoses Epidermal cyst of neck L72.0
[2024-06-07 10:42] VITALS: BMI 23.9
== END 2024-06-07 11:13 | disposition home or self-care (01) ==
PROVIDERS: PCP Internal Medicine; Visit Provider Surgery
DX: L72.0 Epidermal cyst (principal)
CPT/HCPCS: 99203

== ENCOUNTER 2024-06-29 10:00 | Outpatient (REF) | payer OTHER, SELFPAY | END 2024-06-29 10:01 | disposition home or self-care (01) | LOC: HO.LNP 10:00 | PROVIDERS: PCP Internal Medicine; Visit Provider Surgery | DX: L72.0 Epidermal cyst (principal) | CPT/HCPCS: 11423; 88304 ==

== ENCOUNTER 2024-06-29 10:00 | Outpatient (AMB) | payer OTHER, SELFPAY ==
--- NOTE | 2024-06-29 10:04 | MHC.OFFVIS ---
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 [facility] Medical History Epidermal cyst of neck Surgical History No pertinent past surgical history Family History Other Family history unknown Social History Alcohol intake: current Alcohol intake frequency: 0-2 drinks per day Substance Use Type: Marijuana Physical Exam Vital Signs: BMI result Body Mass Index 23.9 Office Procedures Excision Details: He was in prone position. The area of the cyst on the posterior neck was prepped and draped. Lidocaine 1% was used for local anesthesia. I made an incision on the skin overlying the cyst with a blade 15. And this was carried down through the full-thickness of the skin part of subcutaneous layer until was able to visualize an epidermal inclusion cyst capsule. I sharply excised this from around the subcutaneous layer until this was delivered. This measured about 2 cm in diameter. I closed the skin incision with full-thickness nylon 3-0 simple interrupted sutures. A Band-Aid was applied. He tolerated procedure well. There were no immediate complications [id number] scalp/neck/hands/feet/genitalia 1.1cm-2cm Procedure code (CPT) selection complete Assessment & Plan Assessment & Plan (1) Epidermal cyst of neck: Code(s): L72.0 - Epidermal cyst Category: Medical Plan: He tolerated the procedure well. He was given wound care instructions. He will be seen for removal sutures in the office. Coding Level of Care Code Global (08522) Diagnoses Epidermal cyst of neck L72.0 CPT Codes Scalp/Neck/Hands/Feet/Genetalia - CPT: 13726-Fswngfkh scalp/neck/hands/feet/genitalia 1.1cm-2cm ([id number])
[2024-06-29 10:18] VITALS: BMI 23.9
== END 2024-06-29 10:54 | disposition home or self-care (01) ==
PROVIDERS: PCP Internal Medicine; Visit Provider Surgery
DX: L72.0 Epidermal cyst (principal)
CPT/HCPCS: 11423

== ENCOUNTER 2024-07-13 08:48 | Outpatient (AMB) | payer OTHER, SELFPAY ==
--- NOTE | 2024-07-13 08:49 | A.OFFVIS_ITS ---
Intake Visit Reasons: s/p Excision cyst on neck Intake Note: This patient presents for suture removal status post office procedure for excision epidermal cyst posterior neck (06/29/2024). Pt c/o; no concerns. 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 He tolerated the procedure well and denies complaints. [facility] Medical History Epidermal cyst of neck Surgical History History of excision of epidermal inclusion cyst (~06/29/24) No pertinent past surgical history Family History Other Family history unknown Social History Alcohol intake: current Alcohol intake frequency: 0-2 drinks per day Substance Use Type: Marijuana Review of Systems Const Denies chills and Denies fever(s) Physical Exam Const General: comfortable and no acute distress Neck Other: excision site well healed, sutures intact, not infected Assessment & Plan Assessment & Plan (1) Epidermal cyst of neck: Code(s): L72.0 - Epidermal cyst Category: Medical Plan: S/P excision. I removed his sutures. His incision is wellhealed. He can ffup on a prn basis. Coding Level of Care Code Global (86775) Diagnoses Epidermal cyst of neck L72.0
== END 2024-07-13 09:16 | disposition home or self-care (01) ==
PROVIDERS: PCP Internal Medicine; Visit Provider Surgery
DX: L72.0 Epidermal cyst (principal)
CPT/HCPCS: 99024

== ENCOUNTER → 2024-07-13 08:48 | Outpatient (BNVA) | payer OTHER, SELFPAY | PROVIDERS: PCP Internal Medicine; Visit Provider Surgery ==

== ENCOUNTER 2024-12-27 14:46 | Outpatient (AMB) | payer OTHER, SELFPAY ==
--- NOTE | 2024-12-27 14:50 | MHC.PC.OV ---
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 He currently lives at home with his and feels safe there. 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 He does exercise with conscious and pushups on a daily basis and his job is quite labor-intensive with lifting. He currently smokes 1.5-2 packs of cigarettes on a daily basis. He no longer consumes alcohol. No drug use. Cluster headaches-follows with Dr. Dougherty. He reports who has headaches occur on a near daily basis during active clusters and have been ongoing for 10 years. Reports crushing headaches on the left side with associated rhinorrhea and lacrimation. He states typically they last anywhere between 20-60 minutes R and R intolerable. He takes verapamil and Haldol on a daily basis and also uses lorazepam as needed. He does continue smoking though has been advised cessation to help with headache severity and frequency Concerns: Currently reporting bright red blood per rectum particularly gait when he wipes following a bowel movement. Reports sometimes it is a small amount of blood but other times is more significant. Denies any blood directly in the stool or in the toilet bowl. He reports he does not feel any lumps or bumps the perianal area. He denies any constipation or diarrhea, has regular bowel movements. Denies any straining. There is occasional pruritus. Denies any history of colon cancer. Health Maintenance: Has not yet undergone screening colonoscopy Does not follow with dentist or ete doctor Reviewed past medical, surgical, family, social history ROS: General: No fevers, malaise, unintentional weight loss HEENT: No blurred vision, diplopia. No sore throat, nasal congestion, rhinorrhea, sinus pain, ear pain. No hearing loss Neck - no adenopathy Cardiovascular: No chest pain, palpitations, or leg edema Respiratory: No shortness of breath, wheezing, cough GI: No dysphagia, odynophagia, globus sensation. No abdominal pain, nausea, vomiting, diarrhea, constipation. See hpi : No dysuria, hematuria, increased urinary frequency, decreased urinary output. No testicular swelling or pain. No penile discharge MSK: No myalgia, back pain, arthralgias Neuro: see hpi. weakness, paresthesias Psych: no depression/anxiery. No AH/VH. No SI/HI Skin: No rashes or lesions EXAM: Constitutional - Awake and Alert, No apparent distress Eyes - PERRLA, EOMI. Anicteric Ears - external ears normal, canals clear, TMs intact and pearly montemayor with good cone of light Nose- septum midline, nares clear, no sinus tenderness Mouth/throat- mucosa moist, tongue and uvula midline, no erythema/edema or tonsillar adenopathy. Neck-trachea midline, thyroid symmetric without palpable nodules, no adenopathy Cardiovascular - S1S2, RRR, No edema Respiratory - Normal lung expansion, Normal respiratory effort, No respiratory distress, CTA bilaterally Gastrointestinal - NT / ND; +BS; No rebound or guarding Rectal - declines/deferred - No CVA tenderness Extremities - no calf tenderness bilaterally, no swelling Musculoskeletal - Normal inspection, normal ROM Skin - Warm/Dry, no concerning lesions Neurological - Alert & oriented x3, CN II-XII in tact, 5/5 strength BUE and BLE, 2+ patellar reflexes, sensation intact Psychological - Appropriate affect [facility] Medical History (Updated 12/27/24 @ 15:15 by PIYUSH Do) Cigarette smoker Cluster headaches Epidermal cyst of neck Surgical History History of excision of epidermal inclusion cyst (~06/29/24) No pertinent past surgical history Family History (Updated 12/27/24 @ 15:14 by PIYUSH Do) Paternal Grandmother Sullivan disease Paternal Grandfather Alzheimer dementia Other Family history unknown Social History Alcohol intake: current Alcohol intake frequency: 0-2 drinks per day Substance Use Type: Marijuana Questionnaire PHQ-9 Over the last 2 weeks, how often have you been bothered by any of the following problems? 1. Little interest or pleasure in doing things: not at all 2. Feeling down, depressed, or hopeless: more than half the days 3. Trouble falling or staying asleep, or sleeping too much: nearly every day 4. Feeling tired or having little energy: more than half the days 5. Poor appetite or overeating: not at all 6. Feeling bad about yourself - or that you are a failure or have let yourself or your family down: not at all 7. Trouble concentrating on things, such as reading the newspaper or watching television: not at all 8. Moving or speaking so slowly that other people could have noticed. Or the opposite - being so fidgety or restless that you have been moving around a lot more than usual: several days 9. Thoughts that you would be better off or of hurting yourself in some way: nearly every day Total score: 11 Depression Screening Interpretation: Positive Depression Screening Done: Yes 35451 - PHQ-9 Billing: Yes Source: Developed by Drs. Neil Pardo, Deborah Olivia, Basilio Avila and colleagues, with an educational cooper from [employer]. Thrive Questionnaire Date Thrive assessed: 12/27/24 I am a: Patient What is your living situation today?: I have a steady place to live Within the past 12 months, did the food you bought not last and you didn't have the money to get more?: Never true Within the past 12 months, did you worry whether your food would run out before you got money to buy more?: Never true Do you have trouble paying for medicines?: No Do you have trouble getting transportation to medical appointments?: No Do you have trouble paying your heating and electricity bill?: No Do you have trouble taking care of your child, family member or friend?: No Do you have trouble with day-to-day activities such as bathing, preparing meals, shopping, managing finances, etc.?: No Are you currently unemployed and looking for a job?: No Are you interested in more education?: No THRIVE Score: 0 YAMILE-7 AMB Questionnaire YAMILE-7 Date YAMILE - 7 assessed: 12/27/24 Feeling nervous, anxious, or on edge: 2 = More than half the days Not being able to stop or control worryin = More than half the days Worrying too much about different things: 2 = More than half the days Trouble relaxin = Several days Being so restless that it is hard to sit still: 3 = Nearly every day Becoming easily annoyed or irritable: 1 = Several days Feeling afraid as if something awful might happen: 0 = Not at all Total YAMILE-7 score (0-4 normal; 5-9 mild; 10-14 moderate; 15-21 severe): 11 Source: Developed by Drs. Neil Pardo, Deborah Olivia, Basilio Avila and colleagues, with an educational cooper from [employer]. Physical exam (Primary Care) Vital Signs: Last Vital Signs Temp 97.6 F 12/27/24 14:56 Pulse 84 12/27/24 14:56 Resp 16 12/27/24 14:56 BP 112/70 12/27/24 14:56 Pulse Ox 96 12/27/24 14:56 Oxygen Delivery Method Room Air 12/27/24 14:56 BMI result Body Mass Index 24.1 PHQ-9: PHQ-9 Score PHQ-9: Total score 11 12/27/24 15:10 Depression Screening Interpretation: Positive Thrive Assessment: Date of Thrive Assessment Date Thrive assessed 12/27/24 12/27/24 15:06 Coding Level of Care Code New Pt Prev Care 40-64y(36323) Diagnoses Routine medical exam Z00.00 BRBPR (bright red blood per rectum) K62.5 Cluster headaches G44.009 Cigarette smoker F17.210 Additional Codes PHQ-9 - 58162 - PHQ-9 Billing: Yes ([id number]) Assessment & Plan Assessment & Plan (1) Routine medical exam: Code(s): Z00.00 - Encounter for general adult medical examination without abnormal findings Plan: 44-year-old male presenting for annual physical exam. Plan as below. Smoking cessation strongly advised. (2) BRBPR (bright red blood per rectum): Code(s): K62.5 - Hemorrhage of anus and rectum Category: Medical Plan: Patient declines rectal exam at visit. Referred to Gastroenterology for further evaluation and management and is referred for Cologuard testing. Suspect hemorrhoidal etiology. Anusol sent (3) Cluster headaches: Comment: Dr. Dougherty Code(s): G44.009 - Cluster headache syndrome, unspecified, not intractable Category: Medical Plan: Continue following with Dr. Dougherty. Continue verapamil, Haldol, lorazepam. Recommend smoking cessation (4) Cigarette smoker: Code(s): F17.210 - Nicotine dependence, cigarettes, uncomplicated Category: Social Hx Plan: Smoking cessation strongly advised. Nicotine patches and Nicorette lozenges sent to pharmacy Plan Routine labs reviewed from 06/20 and are satisfactory Positive PHQ-9 and YAMILE-7. Continue working on positive coping mechanisms. Smoking cessation Continue with screening colonoscopies and PSA Continue following for annual skin exams and use sun protection Annual eye exams Wear seat belt in car Recommend regular exercise and healthy diet Follow up in 1 year Orders: Referrals Cologuard Test K62.5 - Hemorrhage of anus and rectum, Z12.11 - Encounter for screening for malignant neoplasm of colon, Z12.12 - Encounter for screening for malignant neoplasm of rectum Gastroenterology Referral K62.5 - Hemorrhage of anus and rectum Medications: New nicotine 1 patch transdermal DAILY 28 ea 1RF hydrocortisone 2.5% (Anusol-HC) 1 appl RI BID-QID PRN 30 grams 0RF hemorrhoids nicotine (polacrilex) (Nicorette) 4 mg buccal Q4-8H PRN 72 ea 2RF nicotine cravings
[2024-12-27 14:54] VITALS: BMI 24.1
[2024-12-27 14:56] VITALS: BP 112/70; PULSE 84; RESP 16; TEMP 36.4; O2SAT 96
== END 2024-12-27 16:11 | disposition home or self-care (01) ==
LOC: HO.HMCHD 14:46
PROVIDERS: PCP Physician Assistant; Visit Provider Physician Assistant
DX: Z00.00 Encounter for general adult medical examination without abnormal findings (principal); K62.5 Hemorrhage of anus and rectum; G44.009 Cluster headache syndrome, unspecified, not intractable; F17.210 Nicotine dependence, cigarettes, uncomplicated

== ENCOUNTER → 2024-12-27 14:46 | Outpatient (BNVA) | payer OTHER, SELFPAY | PROVIDERS: PCP Physician Assistant; Visit Provider Physician Assistant | DX: Z00.00 Encounter for general adult medical examination without abnormal findings (principal); K62.5 Hemorrhage of anus and rectum; G44.009 Cluster headache syndrome, unspecified, not intractable; F17.210 Nicotine dependence, cigarettes, uncomplicated; Z79.899 Other long term (current) drug therapy; Z13.31 Encounter for screening for depression; Z13.30 Encounter for screening examination for mental health and behavioral disorders, unspecified | CPT/HCPCS: 96127 ==

== ENCOUNTER 2025-01-10 10:56 | Outpatient (AMB) | payer OTHER, SELFPAY ==
--- NOTE | 2025-01-10 11:25 | A.OFFVIS_ITS ---
Intake Visit Reasons: 3M Allergies No Known Allergies Allergy (Verified 12/27/24 14:51) Medication List - Last Reconciled 01/10/25 by Rylan Dougherty MD haloperidol 2 mg PO TID hydrocortisone 2.5% (Anusol-HC) 1 appl AL BID-QID PRN lorazepam 1 mg PO DAILY PRN nicotine 1 patch transdermal DAILY nicotine (polacrilex) (Nicorette) 4 mg buccal Q4-8H PRN Oxygen Home Use As directed verapamil ER mg PO HPI Comments Details: 44 yo man with left sided intractable cluster headaches. He was relatively ok but he needed meds. Verapamil was helping. He was also using oxygen PRN. He was going through a cluster now and having headaches every day. [facility] Medical History (Updated 01/10/25 @ 11:28 by Rylan Dougherty MD) Insomnia Cigarette smoker Cluster headaches Epidermal cyst of neck Surgical History History of excision of epidermal inclusion cyst (~06/29/24) No pertinent past surgical history Family History (Updated 12/27/24 @ 15:14 by PIYUSH Do) Paternal Grandmother Loup disease Paternal Grandfather Alzheimer dementia Other Family history unknown Social History Alcohol intake: current Alcohol intake frequency: 0-2 drinks per day Substance Use Type: Marijuana Review of Systems Const Details: Constitutional:?No fever, chills, fatigue, weight loss, or night sweats. HEENT:?No headache, vision changes, hearing loss, nasal congestion, sore throat. Neurological:?No dizziness, syncope, seizures, numbness, tingling, weakness, tremors, memory loss. Psychiatric:?No anxiety, depression, mood swings, sleep disturbance, or hallucinations. Endocrine:?No heat/cold intolerance, polydipsia, polyuria, or hair/skin changes. Hematologic/Lymphatic:?No easy bruising, bleeding, or lymphadenopathy. Integumentary (Skin):?No rash, lesions, itching, or color changes. ? Physical Exam Neuro Other: Mental Status: Alert and oriented to person, place, and time. Normal attention. Normal spontaneous speech, fluency, and comprehension. No obvious issues with mood and memory. Affect is appropriate. Cranial Nerves: CN II: Visual barth full to confrontation, visual acuity intact. CN III, IV, : Pupils equal, round, reactive to light and accommodation. Extraocular movements are normal. CN V: Facial sensation is normal. CN VII: Facial movements symmetrical. CN VIII: Hearing intact to bedside conversation is normal. CN IX, X: Palate elevates symmetrically. CN XI: Shoulder shrug and head turn symmetrical. CN XII: Tongue midline without atrophy or fasciculations. Extrapyramidal: Full facial expressions and blinking. No rigidity. Movements are appropriate with no tremor or abnormality. Speech: Normal; no dysarthria or tremor. Assessment & Plan Assessment & Plan (1) Cluster headaches: Comment: Meds tried: amitriptyline, verapamil, sumatriptan, lorazepam, oxygen MRI brain WWO at [facility] in Feb 2022: [place] brain WO at [facility] in 2013: WNL (reported). Code(s): G44.009 - Cluster headache syndrome, unspecified, not intractable Category: Medical Qualifiers: Headache chronicity pattern: episodic headache Intractability: intractable Qualified Code(s): G44.011 - Episodic cluster headache, intractable Plan Impression: Cluster headache syndrome Rec: a: Verapamil ER 200mg bid b: Oxygen 7L/min PRN c: Lorazepam 1mg q HS PRN Medications: Changed From verapamil ER PO To verapamil ER 200 mg PO BID 180 caps 0RF 90 days From lorazepam 1 mg PO DAILY PRN To lorazepam 1 mg PO ONCE PRN 30 tabs 0RF anxiety adn sleep MDD 1 Coding Level of Care Code Est Pt Level 4 (10066) Diagnoses Intractable episodic cluster headache G44.011 Headache chronicity pattern: episodic headache Intractability: intractable
== END 2025-01-10 11:39 | disposition home or self-care (01) ==
LOC: HO.HSM 10:57
PROVIDERS: PCP Internal Medicine; Visit Provider Psychiatry & Neurology Neurology
DX: G44.011 Episodic cluster headache, intractable (principal)
CPT/HCPCS: 99214

== ENCOUNTER 2025-04-23 13:43 | Outpatient (AMB) | payer OTHER, SELFPAY ==
--- NOTE | 2025-04-23 13:45 | MHC.OFFVIS ---
Vital Signs 04/23/25 13:46 Height 6 ft Weight 178 lb BMI 24.1 BP 134/72 Blood Pressure Location Rt brachial Position Sitting Pulse 80 Pulse Source Pulse Oximeter Pulse Oximetry (%) 98 Oxygen Delivery Method Room Air Intake Visit Reasons: Hemorrhage of anus and rectum Intake Note: New pt for initial eval of rectal bleeding. CC: C.O. intermittent rectal bleeding and discoloration of stools. Pt states that he has been doing better since starting with the hydrocortisone that was given to him by his PCP. 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 No additional sx or concerns. Crew Clerk Required: No Accompanied by: Self / Same As Patient Allergies No Known Allergies Allergy (Verified 12/27/24 14:51) HPI HPI Hemorrhage of anus and rectum: Details: 44-year-old male with past medical history of migraine headaches, insomnia, tobacco use is here today for initial consultation. Patient reports several episodes of rectal bleed. PCP started patient on Proctosol. Patient reports some improvement, however he still reports hematochezia occasionally. Patient denies having any constipation. Denies straining when going to the bathroom. Patient denies melena. No issues with anesthesia in the past. No history of sleep apnea. Not on any anticoagulation medication. Patient denies any family history of CRC [facility] Medical History Insomnia Cigarette smoker Cluster headaches Epidermal cyst of neck Surgical History History of excision of epidermal inclusion cyst (~06/29/24) No pertinent past surgical history Family History Paternal Grandmother Monroe disease Paternal Grandfather Alzheimer dementia Paternal Grandfather Cancer of kidney Other Family history unknown Social History Alcohol intake: current Alcohol intake frequency: 0-2 drinks per day Substance Use Type: Marijuana Review of Systems Const Denies weight gain and Denies weight loss ENT Reports no additional complaints, Denies dysphagia and Denies odynophagia Card Reports no additional complaints Resp Reports no additional complaints GI Denies abdominal pain, Denies belching, Denies melena, Denies bloating, Reports hematochezia, Denies change in bowel habits, Denies dysphagia, Denies excessive flatus, Denies dyspepsia, Denies heartburn, Denies diarrhea, Denies loose stools, Denies nausea, Denies odynophagia and Denies vomiting Reports no additional complaints Musc Reports no additional complaints Neuro Reports no additional complaints Psych Reports no additional complaints Endo Reports no additional complaints Physical Exam Vital Signs: Last Vital Signs Pulse 80 04/23/25 13:46 BP 134/72 04/23/25 13:46 Pulse Ox 98 04/23/25 13:46 Oxygen Delivery Method Room Air 04/23/25 13:46 BMI result Body Mass Index 24.1 Const General: healthy appearing, no acute distress and well developed Nutritional Appearance: well nourished Orientation/consciousness: patient oriented x3 Resp Effort & Inspection: normal respiratory effort, able to speak in complete sentences, no tracheal deviation and symmetric chest movement Auscultation: clear to auscultation bilaterally Cardio Rate: regular rate GI Inspection: Yes normal to inspection and No distended Palpation (GI): Soft to palpation, not firm, nontender and No hepatosplenomegaly present Auscultation: normal bowel sounds General: Yes no CVA tenderness Back/Spine/Pelvis Back: no CVA tenderness Skin General skin exam: elasticity normal, turgor normal and dry skin Neuro General: patient oriented x3 Psych Appearance: grossly normal Mental Status: mental status grossly normal Assessment & Plan Assessment & Plan (1) BRBPR (bright red blood per rectum): Code(s): K62.5 - Hemorrhage of anus and rectum Category: Medical Plan Patient continues to have blood in his stool despite Proctosol use occasionally. However patient reports significant decrease. Denies melena. I will send patient for colonoscopy to further evaluate. What to expect before during and after procedure discussed with patient. Stressed the importance of good bowel prep on clear liquid diet day before procedure. I will see patient after the procedure, some numbness in the bases. Patient is agreeable to this plan and verbalizes understanding of instructions. He was given the opportunity to ask questions and all questions answered. Thank you for allowing me to participate in his care Orders: Referrals GI Procedure Notification K62.5 - Hemorrhage of anus and rectum, Z12.11 - Encounter for screening for malignant neoplasm of colon Medications: New bisacodyl (Dulcolax (bisacodyl)) take 4 tabs at noon the day before your colonoscopy 20 mg (4 x 5 mg) PO ONCE 4 tabs 0RF constipation 1 day Z12.11 - Encounter for screening for malignant neoplasm of colon polyethylene glycol 3350 (Miralax) As directed by gastroenterology department at [facility] 238 grams PO ONCE 238 grams 0RF Z12.11 - Encounter for screening for malignant neoplasm of colon Coding Level of Care Code New Pt Level 3 (39914) Diagnoses BRBPR (bright red blood per rectum) K62.5 Time Spent (min) 40 Comment 30 minutes spent with patient and additional 10 minutes spent reviewing his records
[2025-04-23 13:46] VITALS: BP 134/72; PULSE 80; O2SAT 98; BMI 24.1
== END 2025-04-23 14:16 | disposition home or self-care (01) ==
LOC: HO.HGI 13:44
PROVIDERS: PCP Internal Medicine; Visit Provider Nurse Practitioner Family
DX: K62.5 Hemorrhage of anus and rectum (principal)
CPT/HCPCS: 99203